=== PATIENT | female | born 1930 | race Caucasian/White ===

== ENCOUNTER 2018-02-20 13:07 | Emergency (ER) | payer OTHER ==
--- NOTE | 2018-02-20 14:34 | RAD REPORT ---
EXAM DESCRIPTION: RAD - Foot Right 3 View - 02/20/2018 2:20 pm CLINICAL HISTORY: Right foot pain status post injury FINDINGS: Mildly displaced fractures involve the second, third and fourth metatarsal necks. No dislo cation is seen. Bones are osteoporotic
--- NOTE | 2018-02-20 15:12 | ER ---
Nurse's Notes [facility] Name: Hailey Partida Age: 88 yrs Sex: Female : 1930 Arrival Date: 02/20/2018 Time: 13:09 Bed 20 Private MD: Diagnosis: Displaced fracture of second metatarsal bone, right foot;Displaced fracture of third metatarsal bone, right foot;Displaced fracture of fourth metatarsal bone, right foot;Fall due to bumping against object Presentation: 02/20 13:15 Presenting complaint: Patient states: I was walking in the yard and my right knee gave hb out, then my right foot twisted, now c/o right foot pain 10/10. Unable to bear weight. Transition of care: patient was not received from another setting of care. Onset of symptoms was February 20, 2018 at 11:30. Initial Sepsis Screen: Does the patient meet any 2 criteria? No. Patient's initial sepsis screen is negative. Does the patient have a suspected source of infection? No. Patient's initial sepsis screen is negative. Care prior to arrival: None. 13:15 Method Of Arrival: Wheelchair hb 13:15 Acuity: RUPA 4 hb Triage Assessment: 13:30 Injury Description: Pt states "My knee gave out and I fell onto my bottom". aa5 Historical: - Allergies: 13:17 Clindamycin; hb 13:17 DynaCirc; hb 13:17 mycin drugs; hb 13:17 whitehead alpha-combinations; hb 13:17 SHELLFISH; hb 13:17 sulfamet/trimet; hb 13:17 TETRACYCLINES; hb 13:17 Ziac; hb - Home Meds: 13:17 alphagan P Opht for Eye Disorder [Active]; Diovan HCT Oral for Hypertension [Active]; hb guanfacine 1 mg Oral tab 1 tab once daily for Hypertension [Active]; Magnesium Oxide Oral for Hypomagnesemia [Active]; Metformin Oral for Type 2 Diabetes Mellitus [Active]; aspirin 81 mg Oral chew 1 tab once daily [Active]; Multiple Vitamins Oral tab [Active]; Vitamin B-12 Oral [Active]; - PMHx: 13:17 Arthritis; CAD; Diabetes - NIDDM; Glaucoma; Hypertension; macular degenerations; hb Thyroid problem; - PSHx: 13:17 Hysterectomy; hb - Immunization history:: Adult Immunizations up to date. - Social history:: Smoking status: Patient/guardian denies using tobacco. - Family history:: not pertinent. Screenin:30 Abuse screen: Denies threats or abuse. Nutritional screening: No deficits noted. aa5 Tuberculosis screening: No symptoms or risk factors identified. Fall Risk Fall in past 12 months (25 points). No secondary diagnosis (0 pts). No IV (0 pts). Ambulatory Aid- Crutches/Cane/Walker (15 pts). Mental Status- Oriented to own ability (0 pts). Total Kevin Fall Scale indicates Low Risk Score (25-44 pts). Fall prevention measures have been instituted. Side Rails Up X 2 Family Present and informed to notify staff if they need to leave bedside. Assessment: 13:30 General: Appears comfortable, Behavior is calm, cooperative. Pain: Complains of pain in aa5 dorsum of right foot Pain currently is 10 out of 10 on a pain scale. Quality of pain is described as aching, Pain began this morning at 1130 Aggravated by weight bearing. Neuro: Level of Consciousness is awake, alert, obeys commands, Oriented to person, place, time, situation. Cardiovascular: Heart tones S1 S2 present Pulses are 3+ in right posterior tibial artery and right dorsalis pedis artery Rhythm is regular. Respiratory: Airway is patent Respiratory effort is even, unlabored, Respiratory pattern is regular, symmetrical. GI: No signs and/or symptoms were reported involving the gastrointestinal system. : No signs and/or symptoms were reported regarding the genitourinary system. EENT: No signs and/or symptoms were reported regarding the EENT system. Derm: Skin is pink, warm \\T\\ dry. Musculoskeletal: Range of motion: intact in all extremities, Pt denies knee pain, denies ankle pain. Pt denies head injury. 14:30 Reassessment: Patient and/or family updated on plan of care and expected duration. Pain aa5 level reassessed. Patient is alert, oriented x 3, equal unlabored respirations, skin warm/dry/pink. 16:10 Reassessment: Patient is alert, oriented x 3, equal unlabored respirations, skin aa5 warm/dry/pink. Short walking boot applied to right foot . Vital Signs: 13:14 BP 151 / 101; Pulse 90; Resp 20; Temp 98; Pulse Ox 100% on R/A; Pain 10/10; hb 14:39 BP 158 / 66; Pulse 85; Resp 19; Pulse Ox 96% on R/A; mh5 16:05 BP 160 / 64; Pulse 85; Resp 16 S; Pulse Ox 98% on R/A; Pain 9/10; aa5 ED Course: 13:09 Patient arrived in ED. as 13:14 Arm band placed on left wrist. hb 13:16 Triage completed. hb 13:19 Junior Irwin MD is Attending Physician. [facility] 13:23 Aubrie Castanon, RN is Primary Nurse. aa5 13:30 Patient has correct armband on for positive identification. Bed in low position. Call aa5 light in reach. Side rails up X2. Adult w/ patient. 13:30 No provider procedures requiring assistance completed. aa5 14:13 X-ray completed. Portable x-ray completed in exam room. Patient tolerated procedure jb2 well. 14:14 XRAY Foot RIGHT 3 View In Process Unspecified. EDMS 15:09 Dario Carmona MD is Referral Physician. [facility] 16:15 Patient did not have IV access during this emergency room visit. aa5 Administered Medications: 15:40 Drug: [place] 5 mg-325 mg 1 tabs Route: PO; aa5 16:10 Follow up: Response: No adverse reaction aa5 Outcome: 15:12 Discharge ordered by . [facility] 16:15 Discharged to home via wheelchair, with family. aa5 16:15 Condition: stable 16:15 Discharge instructions given to patient, family, Instructed on discharge instructions, follow up and referral plans. medication usage, Demonstrated understanding of instructions, follow-up care, medications, Prescriptions given X 2. 16:29 Patient left the ED. aa5 Signatures: Dispatcher [employer] EDIA Junior Irwin MD MD cha Buechter, Jesse jb2 Noemí Pena Audri, RN RN aa5 Anabelle Ward RN RN hb Martinez, Maria [facility] Corrections: (The following items were deleted from the chart) 13:16 13:14 BP 151 / 101; Pulse 90bpm; Resp 20bpm; Pulse Ox 100% RA; Temp 98F; Pain 8/10; hb hb
--- NOTE | 2018-02-20 15:12 | EDPHYS ---
Physician Documentation [facility] Name: Hailey Partida Age: 88 yrs Sex: Female : 1930 Arrival Date: 02/20/2018 Time: 13:09 Bed 20 Private MD: ED Physician Junior Irwin HPI: 02/20 14:07 This 88 yrs old Female presents to ER via Wheelchair with complaints of Foot markel Injury. 14:07 The patient presents with a contusion, decreased range of motion, pain. The complaints markel affect the right foot, right foot. Context: resulted from the patient falling, a mis-step by the patient, Mechanism of Injury: Inversion. Onset: The symptoms/episode began/occurred this morning. Modifying factors: The symptoms are alleviated by elevation of extremity, ice packs, the symptoms are aggravated by weight bearing, movement, wearing shoes. Associated signs and symptoms: The patient has no apparent associated signs or symptoms. Severity of symptoms: At their worst the symptoms were moderate, in the emergency department the symptoms are unchanged. The patient has not experienced similar symptoms in the past. Historical: - Allergies: 13:17 Clindamycin; hb 13:17 DynaCirc; hb 13:17 mycin drugs; hb 13:17 whitehead alpha-combinations; hb 13:17 SHELLFISH; hb 13:17 sulfamet/trimet; hb 13:17 TETRACYCLINES; hb 13:17 Ziac; hb - Home Meds: 13:17 alphagan P Opht for Eye Disorder [Active]; Diovan HCT Oral for Hypertension [Active]; hb guanfacine 1 mg Oral tab 1 tab once daily for Hypertension [Active]; Magnesium Oxide Oral for Hypomagnesemia [Active]; Metformin Oral for Type 2 Diabetes Mellitus [Active]; aspirin 81 mg Oral chew 1 tab once daily [Active]; Multiple Vitamins Oral tab [Active]; Vitamin B-12 Oral [Active]; - PMHx: 13:17 Arthritis; CAD; Diabetes - NIDDM; Glaucoma; Hypertension; macular degenerations; hb Thyroid problem; - PSHx: 13:17 Hysterectomy; hb - Immunization history:: Adult Immunizations up to date. - Social history:: Smoking status: Patient/guardian denies using tobacco. - Family history:: not pertinent. ROS: 14:07 Constitutional: Negative for fever, chills, and weight loss, Eyes: Negative for injury, markel pain, redness, and discharge, ENT: Negative for injury, pain, and discharge, Neck: Negative for injury, pain, and swelling, Cardiovascular: Negative for chest pain, palpitations, and edema, Respiratory: Negative for shortness of breath, cough, wheezing, and pleuritic chest pain, Abdomen/GI: Negative for abdominal pain, nausea, vomiting, diarrhea, and constipation, Back: Negative for injury and pain, : Negative for injury, bleeding, discharge, and swelling, Skin: Negative for injury, rash, and discoloration, Neuro: Negative for headache, weakness, numbness, tingling, and seizure, Psych: Negative for depression, anxiety, suicide ideation, homicidal ideation, and hallucinations, Allergy/Immunology: Negative for hives, rash, and allergies, Endocrine: Negative for neck swelling, polydipsia, polyuria, polyphagia, and marked weight changes, Hematologic/Lymphatic: Negative for swollen nodes, abnormal bleeding, and unusual bruising. 14:07 : Positive for 14:07 MS/extremity: Positive for injury or acute deformity, decreased range of motion, pain, of the right foot. Exam: 14:07 Constitutional: This is a well developed, well nourished patient who is awake, alert, markel and in no acute distress. Head/Face: Normocephalic, atraumatic. Eyes: Pupils equal round and reactive to light, extra-ocular motions intact. Lids and lashes normal. Conjunctiva and sclera are non-icteric and not injected. Cornea within normal limits. Periorbital areas with no swelling, redness, or edema. ENT: Nares patent. No nasal discharge, no septal abnormalities noted. Tympanic membranes are normal and external auditory canals are clear. Oropharynx with no redness, swelling, or masses, exudates, or evidence of obstruction, uvula midline. Mucous membranes moist. Neck: Trachea midline, no thyromegaly or masses palpated, and no cervical lymphadenopathy. Supple, full range of motion without nuchal rigidity, or vertebral point tenderness. No Meningismus. Chest/axilla: Normal chest wall appearance and motion. Nontender with no deformity. No lesions are appreciated. Cardiovascular: Regular rate and rhythm with a normal S1 and S2. No gallops, murmurs, or rubs. Normal PMI, no JVD. No pulse deficits. Respiratory: Lungs have equal breath sounds bilaterally, clear to auscultation and percussion. No rales, rhonchi or wheezes noted. No increased work of breathing, no retractions or nasal flaring. Abdomen/GI: Soft, non-tender, with normal bowel sounds. No distension or tympany. No guarding or rebound. No evidence of tenderness throughout. Back: No spinal tenderness. No costovertebral tenderness. Full range of motion. Female : Normal external genitalia. Skin: Warm, dry with normal turgor. Normal color with no rashes, no lesions, and no evidence of cellulitis. Neuro: Awake and alert, GCS 15, oriented to person, place, time, and situation. Cranial nerves II-XII grossly intact. Motor strength 5/5 in all extremities. Sensory grossly intact. Cerebellar exam normal. Normal gait. Psych: Awake, alert, with orientation to person, place and time. Behavior, mood, and affect are within normal limits. 14:07 Musculoskeletal/extremity: Extremities: grossly normal except: pain, ROM: limited active range of motion, limited passive range of motion, Circulation is intact in all extremities. Sensation intact. Compartment Syndrome exam of affected extremity: is normal. Weight bearing: can bear weight with assistance only, DVT Exam: no swelling, negative Homans' sign noted on exam, no appreciated bluish discoloration, no erythema, no increased warmth, pain, tenderness. Vital Signs: 13:14 BP 151 / 101; Pulse 90; Resp 20; Temp 98; Pulse Ox 100% on R/A; Pain 10/10; hb 14:39 BP 158 / 66; Pulse 85; Resp 19; Pulse Ox 96% on R/A; mh5 16:05 BP 160 / 64; Pulse 85; Resp 16 S; Pulse Ox 98% on R/A; Pain 9/10; aa5 MDM: 13:19 Patient medically screened. [facility] 14:11 Data reviewed: vital signs, nurses notes, radiologic studies, plain films. [facility] 02/20 13:42 Order name: XRAY Foot RIGHT 3 View; Complete Time: 15:06 02/20 14:07 Order name: Ice pack; Complete Time: 14:10 [facility] 02/20 15:14 Order name: Misc. Order: short walking boot; Complete Time: 16:26 [facility] Administered Medications: 15:40 Drug: [place] 5 mg-325 mg 1 tabs Route: PO; aa5 16:10 Follow up: Response: No adverse reaction aa5 Disposition: 02/20/18 15:12 Discharged to Home. Impression: Displaced fracture of second metatarsal bone, right foot, Displaced fracture of third metatarsal bone, right foot, Displaced fracture of fourth metatarsal bone, right foot, Fall due to bumping against object. - Condition is Stable. - Discharge Instructions: Metatarsal Fracture, Undisplaced. - Prescriptions for Motrin IB 200 mg Oral Tablet - take 2 tablet by ORAL route every 6 hours As needed as needed with food; 20 tablet. Tylenol- Codeine #3 300-30 mg Oral Tablet - take 2 tablets by ORAL route every 6 hours As needed; 24 tablet. - Medication Reconciliation Form, Thank You Letter, Antibiotic Education, Prescription Opioid Use form. - Follow up: Private Physician; When: 2 - 3 days; Reason: Recheck today's complaints, Continuance of care, Re-evaluation by your physician. Follow up: Dario Carmona; When: 2 - 3 days; Reason: Recheck today's complaints, Continuance of care, Re-evaluation by your physician. - Problem is new. - Symptoms have improved. Signatures: Dispatcher [employer] EDMS Junior Irwin MD MD cha Calderon, Audri, RN RN aa5 Anabelle Ward RN RN Corrections: (The following items were deleted from the chart) 15:08 14:07 Ortho shoe ordered. markel [facility]
[2018-02-20] MEDS ORDERED: HYDROCODONE/APAP 5/325 MG TAB ONE (15:47)
[2018-02-20 16:34] VITALS: TEMP 98
[2018-02-20 16:36] VITALS: BP 160/64; O2SAT 98
== END 2018-02-20 16:29 | disposition home or self-care (01) ==
LOC: ER 13:07
DX: S92.321A Displaced fracture of second metatarsal bone, right foot, initial encounter for closed fracture (principal); S92.331A Displaced fracture of third metatarsal bone, right foot, initial encounter for closed fracture; S92.341A Displaced fracture of fourth metatarsal bone, right foot, initial encounter for closed fracture; W01.0XXA Fall on same level from slipping, tripping and stumbling without subsequent striking against object, initial encounter; Y93.9 Activity, unspecified; Y92.9 Unspecified place or not applicable; Z88.3 Allergy status to other anti-infective agents; Z88.2 Allergy status to sulfonamides; Z91.013 Allergy to seafood; Z88.8 Allergy status to other drugs, medicaments and biological substances; E11.9 Type 2 diabetes mellitus without complications; I10 Essential (primary) hypertension
CPT/HCPCS: 99283

== ENCOUNTER 2018-02-21 21:38 | Emergency (ER) | payer OTHER ==
--- NOTE | 2018-02-21 22:41 | RAD REPORT ---
EXAM DESCRIPTION: RAD - Neck Soft Tissue - 02/21/2018 10:33 pm CLINICAL HISTORY: Dysphagia COMPARISON: None. FINDINGS: Prevertebral soft tissues are normal. Epiglottis and aryepiglottic folds are normal. Air c olumn is patent. No foreign body is seen. IMPRESSION: Negative study.
--- NOTE | 2018-02-21 23:28 | ER ---
Nurse's Notes [facility] Name: Hailey Partida Age: 88 yrs Sex: Female : 1930 Arrival Date: 02/21/2018 Time: 21:44 Bed 18 Private MD: Diagnosis: Person with feared health complaint in whom no diagnosis is made Presentation: 02/21 21:46 Presenting complaint: Child states: "She thinks she has something stuck in her lk1 throat.". Transition of care: patient was not received from another setting of care. Onset of symptoms was February 21, 2018 at 19:00. Initial Sepsis Screen: Does the patient meet any 2 criteria? No. Patient's initial sepsis screen is negative. Does the patient have a suspected source of infection? No. Patient's initial sepsis screen is negative. Care prior to arrival: None. 21:46 Method Of Arrival: Wheelchair lk1 21:46 Acuity: RUPA 3 lk1 Triage Assessment: 21:47 General: Appears in no apparent distress. Behavior is calm, cooperative, appropriate lk1 for age. Pain: Denies pain. GI: Reports something stuck in throat, coughing a lot and it won't come up. 21:50 Respiratory: Respiratory effort is even, unlabored, Respiratory pattern is regular, lk1 symmetrical. Historical: - Allergies: 21:47 Clindamycin; lk1 21:47 DynaCirc; lk1 21:47 mycin drugs; lk1 21:47 whitehead alpha-combinations; lk1 21:47 SHELLFISH; lk1 21:47 sulfamet/trimet; lk1 21:47 TETRACYCLINES; lk1 21:47 Ziac; lk1 - PMHx: 21:47 Arthritis; CAD; Diabetes - NIDDM; Glaucoma; Hypertension; macular degenerations; lk1 Thyroid problem; - PSHx: 21:47 Hysterectomy; stomach procedure; lk1 - Immunization history:: Adult Immunizations up to date. - Social history:: Smoking status: Patient/guardian denies using tobacco. Screenin:03 Abuse screen: Denies threats or abuse. Denies injuries from another. Nutritional ao screening: No deficits noted. Tuberculosis screening: No symptoms or risk factors identified. Fall Risk Fall in past 12 months (25 points). Assessment: 23:02 General: Appears in no apparent distress. comfortable, Behavior is calm, cooperative, ao appropriate for age. Pain: Denies pain. Neuro: Level of Consciousness is awake, alert, obeys commands, Oriented to person, place, time, situation, Appropriate for age Moves all extremities. Speech is normal, Facial symmetry appears normal, Pupils are PERRLA. Cardiovascular: Patient's skin is warm and dry. Respiratory: Airway is patent Respiratory effort is even, unlabored, Respiratory pattern is regular, symmetrical. GI: Abdomen is non-distended. : No signs and/or symptoms were reported regarding the genitourinary system. EENT: No signs and/or symptoms were reported regarding the EENT system. Derm: No signs and/or symptoms reported regarding the dermatologic system. Musculoskeletal: No signs and/or symptoms reported regarding the musculoskeletal system. Vital Signs: 21:48 BP 135 / 65; Pulse 73; Resp 15; Temp 97.8(TE); Pulse Ox 97% on R/A; Weight 58.51 kg lk1 (R); Height 5 ft. 5 in. (165.10 cm) (R); Pain 0/10; 21:48 Body Mass Index 21.47 (58.51 kg, 165.10 cm) lk1 ED Course: 21:44 Patient arrived in ED. al2 21:46 Triage completed. lk1 21:50 Arm band placed on right wrist. lk1 22:28 Rose Luna F[facility]-C [facility]. kb 22:28 Yohan Harris MD is Attending Physician. kb 22:31 Patient moved to radiology via wheelchair. kc2 22:31 X-ray completed. Patient tolerated procedure well. kc2 22:31 Patient moved back from radiology. kc2 22:32 Neck Soft Tissue XRAY In Process Unspecified. EDMS 22:44 Jayjay Lawrence, JACK is Primary Nurse. ao 23:03 Patient has correct armband on for positive identification. Pulse ox on. NIBP on. ao 23:03 No provider procedures requiring assistance completed. ao 23:53 Patient did not have IV access during this emergency room visit. ao Administered Medications: No medications were administered Outcome: 23:28 Discharge ordered by . kb 23:53 Discharged to home ambulatory. ao 23:53 Condition: stable 23:53 Discharge instructions given to patient, Instructed on discharge instructions, follow up and referral plans. Demonstrated understanding of instructions, follow-up care, medications. 23:53 Patient left the ED. ao Signatures: Dispatcher [employer] EDRose Gibson FNP-C FNP-Ckb Kluge, Leah, RN RN lk1 Jayjay Lawrence RN RN ao Carr, Kelsie kc2 Gretta Chin
--- NOTE | 2018-02-21 23:28 | EDPHYS ---
Physician Documentation [facility] Name: Hailey Partida Age: 88 yrs Sex: Female : 1930 Arrival Date: 02/21/2018 Time: 21:44 Bed 18 Private MD: ED Physician Yohan Harris HPI: 02/21 22:59 This 88 yrs old Female presents to ER via Wheelchair with complaints of kb Foreign Body In Throat. 22:59 The patient or guardian reports the patient has a suspected foreign body, of the kb throat. The reported likely foreign body is unknown. Onset: The symptoms/episode began/occurred 4 hour(s) ago. Current symptoms: none. Treatment Prior to Arrival: none. The patient has not experienced similar symptoms in the past. The patient has not recently seen a physician. Pt states she ate dinner, then was drinking water and started coughing. States she had meat stuck several years ago and started thinking about that so she got worried that there was something stuck again. States "I'm fine now. My throat feels fine.". Historical: - Allergies: 21:47 Clindamycin; lk1 21:47 DynaCirc; lk1 21:47 mycin drugs; lk1 21:47 whitehead alpha-combinations; lk1 21:47 SHELLFISH; lk1 21:47 sulfamet/trimet; lk1 21:47 TETRACYCLINES; lk1 21:47 Ziac; lk1 - PMHx: 21:47 Arthritis; CAD; Diabetes - NIDDM; Glaucoma; Hypertension; macular degenerations; lk1 Thyroid problem; - PSHx: 21:47 Hysterectomy; stomach procedure; lk1 - Immunization history:: Adult Immunizations up to date. - Social history:: Smoking status: Patient/guardian denies using tobacco. ROS: 22:58 Constitutional: Negative for fever, chills, and weight loss, ENT: Negative for injury, kb pain, and discharge, Neck: Negative for injury, pain, and swelling, Cardiovascular: Negative for chest pain, palpitations, and edema, Respiratory: Negative for shortness of breath, cough, wheezing, and pleuritic chest pain, Abdomen/GI: Negative for abdominal pain, nausea, vomiting, diarrhea, and constipation, MS/Extremity: Negative for injury and deformity, Skin: Negative for injury, rash, and discoloration, Neuro: Negative for headache, weakness, numbness, tingling, and seizure. Exam: 22:58 Constitutional: This is a well developed, well nourished patient who is awake, alert, kb and in no acute distress. Head/Face: Normocephalic, atraumatic. ENT: Nares patent. No nasal discharge, no septal abnormalities noted. Tympanic membranes are normal and external auditory canals are clear. Oropharynx with no redness, swelling, or masses, exudates, or evidence of obstruction, uvula midline. Mucous membranes moist. Neck: Trachea midline, no thyromegaly or masses palpated, and no cervical lymphadenopathy. Supple, full range of motion without nuchal rigidity, or vertebral point tenderness. No Meningismus. Chest/axilla: Normal chest wall appearance and motion. Nontender with no deformity. No lesions are appreciated. Cardiovascular: Regular rate and rhythm with a normal S1 and S2. No gallops, murmurs, or rubs. Normal PMI, no JVD. No pulse deficits. Respiratory: Lungs have equal breath sounds bilaterally, clear to auscultation and percussion. No rales, rhonchi or wheezes noted. No increased work of breathing, no retractions or nasal flaring. Abdomen/GI: Soft, non-tender, with normal bowel sounds. No distension or tympany. No guarding or rebound. No evidence of tenderness throughout. Skin: Warm, dry with normal turgor. Normal color with no rashes, no lesions, and no evidence of cellulitis. MS/ Extremity: Pulses equal, no cyanosis. Neurovascular intact. Full, normal range of motion. Neuro: Awake and alert, GCS 15, oriented to person, place, time, and situation. Cranial nerves II-XII grossly intact. Motor strength 5/5 in all extremities. Sensory grossly intact. Cerebellar exam normal. Normal gait. Vital Signs: 21:48 BP 135 / 65; Pulse 73; Resp 15; Temp 97.8(TE); Pulse Ox 97% on R/A; Weight 58.51 kg lk1 (R); Height 5 ft. 5 in. (165.10 cm) (R); Pain 0/10; 21:48 Body Mass Index 21.47 (58.51 kg, 165.10 cm) lk1 MDM: 22:28 Patient medically screened. kb 22:58 Data reviewed: vital signs, nurses notes. Data interpreted: Pulse oximetry: on room air kb is 97 %. Interpretation: normal. 23:27 Counseling: I had a detailed discussion with the patient and/or guardian regarding: the kb historical points, exam findings, and any diagnostic results supporting the discharge/admit diagnosis, radiology results, the need for outpatient follow up, a family practitioner, to return to the emergency department if symptoms worsen or persist or if there are any questions or concerns that arise at home. ED course: Pt tolerating PO intake. . 02/21 22:16 Order name: Neck Soft Tissue XRAY; Complete Time: 22:42 kb 02/21 22:53 Order name: PO challenge; Complete Time: 23:02 kb Administered Medications: No medications were administered Disposition: 02/22 06:45 Co-signature as Attending Physician, Yohan Harris MD Available for consultation at ps1 all times. . Disposition: 02/21/18 23:28 Discharged to Home. Impression: Person with feared health complaint in whom no diagnosis is made. - Condition is Stable. - Medication Reconciliation Form, Thank You Letter, Antibiotic Education, Prescription Opioid Use form. - Follow up: Emergency Department; When: As needed; Reason: Worsening of condition. Follow up: Private Physician; When: 2 - 3 days; Reason: Recheck today's complaints, Continuance of care, Re-evaluation by your physician. Signatures: Dispatcher [employer] EDCT Rose Luna, HERMINIO QUEEN-Carla Marquez RN RN lk1 Jayjay Lawrence RN Yohan Mendoza MD MD ps1 Corrections: (The following items were deleted from the chart) 02/21 22:53 22:42 EKG - Nurse/Tech ordered. kb kb
[2018-02-21 23:57] VITALS: BP 135/65; TEMP 97.8; O2SAT 97
== END 2018-02-21 23:53 | disposition home or self-care (01) ==
LOC: ER 21:38
DX: Z03.89 Encounter for observation for other suspected diseases and conditions ruled out (principal); I25.10 Atherosclerotic heart disease of native coronary artery without angina pectoris; E11.9 Type 2 diabetes mellitus without complications; I10 Essential (primary) hypertension
CPT/HCPCS: 70360; 99283

== ENCOUNTER 2018-04-21 19:23 | Inpatient (IN) | payer OTHER ==
[2018-04-21] MEDS ORDERED: ONDANSETRON 4 MG/2 ML VIAL ONE ×2 (19:59→20:38)
[2018-04-21] MEDS ORDERED: PANTOPRAZOLE 40 MG INJ ONE (19:59)
[2018-04-21] MEDS ORDERED: NA CHLORIDE 0.9% 500 ML ONE (19:59)
[2018-04-21 20:34] LABS: Absolute Lymphocytes (CBC) 1.6 K/uL (0.7-4.9); Absolute Monocytes 0.6 K/uL (0.1-1.3); Absolute Neutrophil 8.4 K/uL (1.8-8.0); Basophils % 0.6 % (0-1.3); Eosinophils % 3.6 % (0-4.4); Hematocrit 44.3 % (36.0-45.0); Lymphocytes % 14.6 % (15.3-44.8); MCH 28.1 pg (27.0-35.0); MCV 84.6 fL (80-100); MPV 8.6 fL (7.6-11.3); Monocytes % 5.4 % (3.3-12.3); RBC Red Blood Cell Count 5.23 M/uL (3.86-4.86)
[2018-04-21] MEDS ORDERED: MORPHINE 4 MG/ML SYR ONE (20:38)
[2018-04-21] MEDS ORDERED: FENTANYL CITR 100 MCG/2 ML ONE ×2 (20:43→21:47)
[2018-04-21 20:52] LABS: ALT/SGPT 19 U/L (12-78); AST/SGOT 17 U/L (15-37); Alkaline Phosphatase 145 U/L (45-117); Amylase Level 76 U/L (25-115); BUN Blood Urea Nitrogen 17 mg/dL (7-18); Bicarbonate 25 mmol/L (21-32); Bilirubin Direct < 0.1 mg/dL (0-0.2); Bilirubin Total 0.4 mg/dL (0.2-1.0); Glucose Level 162 mg/dL (74-106); Lipase 140 U/L (73-393); Magnesium 2.3 mg/dL (1.8-2.4); Protein, Total 8.2 g/dL (6.4-8.2); Sodium Level 141 mmol/L (136-145)
[2018-04-21] MEDS ORDERED: HYDROMORPHONE HCL 1 MG/ML INJ ONE (22:29)
--- NOTE | 2018-04-21 23:44 | ER ---
Nurse's Notes [facility] Name: Hailey Partida Age: 88 yrs Sex: Female : 1930 Arrival Date: 04/21/2018 Time: 19:24 Bed 25 Private MD: NOEMI ROJO Diagnosis: Small Bowel Obstruction Presentation: 04/21 19:39 Presenting complaint: Patient states: Patient states she started having lower abdominal kr2 pain at around 3pm today. One hour after eating a salad today. She had 1 episode of diarrhea. States because of a surgery she had years ago she is unable to vomit but she feels nauseated. Transition of care: patient was not received from another setting of care. Onset of symptoms was April 21, 2018 at 15:00. Risk Assessment: Do you want to hurt yourself or someone else? Patient reports no desire to harm self or others. Initial Sepsis Screen: Does the patient meet any 2 criteria? No. Patient's initial sepsis screen is negative. Does the patient have a suspected source of infection? No. Patient's initial sepsis screen is negative. Care prior to arrival: None. 19:39 Method Of Arrival: Wheelchair kr2 19:39 Acuity: RUPA 3 kr2 Triage Assessment: 19:41 General: Appears in no apparent distress. uncomfortable, well groomed, well developed, kr2 well nourished, Behavior is cooperative, anxious, restless. Pain: Complains of pain in left and right lower quadrants Pain currently is 10 out of 10 on a pain scale. Quality of pain is described as crampy, sharp, shooting, Is continuous, Alleviated by nothing. Aggravated by eating. GI: Abdomen is round non-distended, Reports diarrhea, nausea. Historical: - Allergies: 19:45 Clindamycin; kr2 19:45 DynaCirc; kr2 19:45 mycin drugs; kr2 19:45 whitehead alpha-combinations; kr2 19:45 SHELLFISH; kr2 19:45 sulfamet/trimet; kr2 19:45 Ziac; kr2 19:45 TETRACYCLINES; kr2 - PMHx: 19:45 Arthritis; CAD; Diabetes - NIDDM; Glaucoma; Hypertension; Thyroid problem; macular kr2 degenerations; - PSHx: 19:45 Hernia repair; Hysterectomy; kr2 - Immunization history:: Adult Immunizations unknown. - Social history:: Smoking status: Patient/guardian denies using tobacco. - Ebola Screening: : No symptoms or risks identified at this time. Screenin:41 Abuse screen: Denies threats or abuse. Denies injuries from another. Nutritional kr2 screening: No deficits noted. Tuberculosis screening: No symptoms or risk factors identified. Fall Risk Gait- Weak (10 pts.). Assessment: 20:05 General: Appears uncomfortable, ill, Behavior is cooperative, appropriate for age, mb3 anxious. Pain: Complains of pain in abdomen. Neuro: No deficits noted. Level of Consciousness is awake, alert, obeys commands, Oriented to person, place, time, situation, Appropriate for age. Cardiovascular: No deficits noted. Denies chest pain, Heart tones present Capillary refill < 3 seconds Patient's skin is warm and dry. Respiratory: No deficits noted. Airway is patent Respiratory effort is even, unlabored, Respiratory pattern is regular, symmetrical, Breath sounds are clear bilaterally. GI: Abdomen is flat, Bowel sounds present X 4 quads. hyperactive in right upper quadrant, left upper quadrant, right lower quadrant and left lower quadrant Abdomen is tender to palpation X 4 quads. : No signs and/or symptoms were reported regarding the genitourinary system. Derm: No signs and/or symptoms reported regarding the dermatologic system. Musculoskeletal: No signs and/or symptoms reported regarding the musculoskeletal system. 21:55 Reassessment: No changes from previously documented assessment. Patient and/or family mb3 updated on plan of care and expected duration. Pain level reassessed. Patient is alert, oriented x 3, equal unlabored respirations, skin warm/dry/pink. 23:47 Reassessment: Patient and/or family updated on plan of care and expected duration. Pain mb3 level reassessed. Patient is alert, oriented x 3, equal unlabored respirations, skin warm/dry/pink. Patient states feeling better. Patient states symptoms have improved. Vital Signs: 19:42 BP 189 / 118; Pulse 91; Resp 18; Temp 97.9; Pulse Ox 97% on R/A; Weight 58.97 kg; kr2 Height 5 ft. 5 in. (165.10 cm); Pain 10/10; 21:49 BP 201 / 96; Pulse 86; Resp 22; Pulse Ox 98% on R/A; Pain 10/10; mb3 22:29 BP 216 / 87; Pulse 80; Resp 22; Pulse Ox 96% on R/A; mb3 23:15 BP 150 / 50; Pulse 85; Resp 18; Pulse Ox 99% on 2 lpm NC; Pain 2/10; mb3 04/22 01:41 BP 150 / 86; Pulse 87; Resp 20; Pulse Ox 92% on R/A; mb3 04/21 19:42 Body Mass Index 21.63 (58.97 kg, 165.10 cm) kr2 ED Course: 04/21 19:24 Patient arrived in ED. es 19:24 NOEMI ROJO is Private Physician. es 19:39 Kenyetta Felix, RN is Primary Nurse. kr2 19:40 Triage completed. kr2 19:41 Arm band placed on. kr2 19:42 Junior Morrissey PA is PHCP. cp 19:42 Damian Ann MD is Attending Physician. cp 19:45 Patient has correct armband on for positive identification. Bed in low position. Call kr2 light in reach. Side rails up X 1. Pulse ox on. NIBP on. Door closed. Warm blanket given. Head of bed elevated. 20:00 Inserted saline lock: 20 gauge in left antecubital area, using aseptic technique. Blood mb3 collected. 20:10 Jorge Mcdonough, RN is Primary Nurse. mb3 21:[address] via stretcher. sj 22:02 CT completed. Patient tolerated procedure well. Patient moved back from CT. nj 22:05 Abdomen In Process Unspecified. EDMS 23:42 Flower Osborn MD is Hospitalizing Provider. cp 04/22 01:46 No provider procedures requiring assistance completed. mb3 01:51 Patient admitted, IV remains in place. mb3 Administered Medications: 04/21 20:02 Drug: ProTONIX 40 mg Route: IVP; Site: left antecubital; kr2 20:02 Drug: Zofran 4 mg Route: IVP; Site: left antecubital; kr2 20:02 Drug: NS 0.9% 250 ml Route: IV; Rate: bolus; Site: left antecubital; kr2 20:21 Drug: NS 0.9% 1000 ml Route: IV; Rate: 75 ml/hr; Site: left antecubital; mb3 20:50 Drug: fentaNYL (PF) 25 mcg Route: IVP; Site: left antecubital; mb3 20:50 Drug: Zofran 4 mg Route: IVP; Site: left antecubital; mb3 21:48 Drug: fentaNYL (PF) 25 mcg Route: IVP; Site: left antecubital; mb3 22:24 CANCELLED (Physician Discretion): Dilaudid 0.5 mg IVP once cp 22:29 Drug: Dilaudid 1 mg Route: IVP; Site: left antecubital; mb3 04/22 01:18 Drug: Nitroglycerin 0.4 mg Route: Sublingual; mb3 Outcome: 04/21 23:43 Decision to Hospitalize by Provider. 04/22 01:48 Admitted to Med/surg accompanied by nurse, family with patient, via stretcher, room mb3 203, with chart, Report called to Christie Mayorga RN Condition: stable 02:10 Patient left the ED. mb3 Signatures: Dispatcher [employer] EDClemencia Cristobal Susan sj Page, Corey, PA PA Ladarius Segal Karey, RN RN kr2 Jorge Mcdonough RN RN mb3
--- NOTE | 2018-04-21 23:44 | EDPHYS ---
Physician Documentation [facility] Name: Hailey Partida Age: 88 yrs Sex: Female : 1930 Arrival Date: 04/21/2018 Time: 19:24 Bed 25 Private MD: NOEMI ROJO ED Physician Damian Ann HPI: 04/21 20:00 This 88 yrs old Female presents to ER via Wheelchair with complaints of cp Abdominal Pain. 20:00 The patient presents with abdominal pain that is diffuse. Onset: The symptoms/episode cp began/occurred today. The symptoms do not radiate. Associated signs and symptoms: Pertinent positives: nausea and vomiting, Pertinent negatives: constipation, diarrhea, dysuria, fever, vomiting blood. The symptoms are described as constant. 20:00 Severity of pain: in the emergency department the pain is actually worse moderately. cp Historical: - Allergies: 19:45 Clindamycin; kr2 19:45 DynaCirc; kr2 19:45 mycin drugs; kr2 19:45 whitehead alpha-combinations; kr2 19:45 SHELLFISH; kr2 19:45 sulfamet/trimet; kr2 19:45 Ziac; kr2 19:45 TETRACYCLINES; kr2 - PMHx: 19:45 Arthritis; CAD; Diabetes - NIDDM; Glaucoma; Hypertension; Thyroid problem; macular kr2 degenerations; - PSHx: 19:45 Hernia repair; Hysterectomy; kr2 - Immunization history:: Adult Immunizations unknown. - Social history:: Smoking status: Patient/guardian denies using tobacco. - Ebola Screening: : No symptoms or risks identified at this time. ROS: 20:08 Constitutional: Negative for body aches, chills, fever. cp 20:08 Eyes: Negative for injury, pain, redness, and discharge. cp 20:08 ENT: Negative for drainage from ear(s), ear pain, sore throat, difficulty swallowing, difficulty handling secretions. 20:08 Cardiovascular: Negative for chest pain, edema, palpitations. 20:08 Respiratory: Negative for cough, shortness of breath, wheezing. 20:08 Abdomen/GI: Positive for abdominal pain, nausea and vomiting, abdominal distension, Negative for diarrhea, constipation, dysphagia, black/tarry stool, rectal bleeding. 20:08 Back: Negative for pain at rest, pain with movement, radiated pain. 20:08 Skin: Negative for cellulitis, rash. 20:08 Neuro: Negative for altered mental status, headache. 20:08 All other systems are negative. Exam: 20:12 Head/Face: Normocephalic, atraumatic. cp 20:12 Constitutional: The patient appears alert, awake, non-diaphoretic, non-toxic, well developed, well nourished, in obvious distress, mildly distressed, uncomfortable. 20:12 Eyes: Periorbital structures: appear normal, Conjunctiva: normal, no exudate, no injection, Sclera: no appreciated abnormality, Lids and lashes: appear normal, bilaterally. 20:12 ENT: External ear(s): are unremarkable, Nose: is normal, Mouth: Lips: dry, Oral mucosa: moist, Posterior pharynx: Airway: no evidence of obstruction, patent. 20:12 Neck: ROM/movement: is normal, is supple, without pain, no range of motions limitations, no meningismus, no nuchal rigidity. 20:12 Chest/axilla: Inspection: normal, Palpation: is normal, no crepitus, no tenderness. 20:12 Cardiovascular: Rate: normal, Rhythm: regular, Edema: is not appreciated, JVD: is not appreciated. 20:12 Respiratory: the patient does not display signs of respiratory distress, Respirations: normal, no use of accessory muscles, no retractions, no splinting, no tachypnea, labored breathing, is not present, Breath sounds: are clear throughout, no decreased breath sounds, no stridor, no wheezing. 20:12 Abdomen/GI: Inspection: distension, that is moderate, Bowel sounds: active, all quadrants, Palpation: soft, in all quadrants, moderate abdominal tenderness, in all quadrants, rebound tenderness, is not appreciated, involuntary guarding, is not appreciated. 20:12 Back: pain, is absent, ROM is normal. 20:12 Skin: cellulitis, is not appreciated, no rash present. cp 20:12 Neuro: Orientation: to person, place \T\ time. Mentation: lucid, able to follow commands, Cerebellar function: is grossly normal, Motor: moves all fours, strength is normal, Sensation: no obvious gross deficits. Vital Signs: 19:42 BP 189 / 118; Pulse 91; Resp 18; Temp 97.9; Pulse Ox 97% on R/A; Weight 58.97 kg; kr2 Height 5 ft. 5 in. (165.10 cm); Pain 10/10; 21:49 BP 201 / 96; Pulse 86; Resp 22; Pulse Ox 98% on R/A; Pain 10/10; mb3 22:29 BP 216 / 87; Pulse 80; Resp 22; Pulse Ox 96% on R/A; mb3 23:15 BP 150 / 50; Pulse 85; Resp 18; Pulse Ox 99% on 2 lpm NC; Pain 2/10; mb3 04/22 01:41 BP 150 / 86; Pulse 87; Resp 20; Pulse Ox 92% on R/A; mb3 04/21 19:42 Body Mass Index 21.63 (58.97 kg, 165.10 cm) kr2 MDM: 04/21 19:42 Patient medically screened. 23:05 Data reviewed: vital signs, nurses notes, lab test result(s), radiologic studies, CT cp scan, and as a result, I will admit patient. 23:05 Differential diagnosis: bowel obstruction, gastritis, GI Bleed, pancreatitis, cp Pyelonephritis, Ureterolithiasis, urinary tract infection. Response to treatment: the patient's symptoms have mildly improved after treatment. 23:39 Physician consultation: Flower Osborn MD was called at 23:39, was contacted at 23:39, regarding admission, to the medical/surgical unit. patient's condition. 04/21 19:55 Order name: Amylase, Serum cp 04/21 19:55 Order name: Basic Metabolic Panel cp 04/21 19:55 Order name: CBC with Diff cp 04/21 19:55 Order name: Creatinine for Radiology; Complete Time: 21:44 cp 04/21 19:55 Order name: Hepatic Function; Complete Time: 21:44 cp 04/21 19:55 Order name: Lipase; Complete Time: 21:44 cp 04/21 19:55 Order name: Urine Microscopic Only cp 04/21 19:55 Order name: Magnesium; Complete Time: 21:44 cp 04/21 19:55 Order name: Amylase Level; Complete Time: 21:44 EDMS 04/21 19:55 Order name: Basic Metabolic Panel; Complete Time: 21:44 EDMS 04/21 21:44 Interpretation: Normal except: GLUC 162; GFR 68. cp 04/21 19:55 Order name: CBC with Automated Diff; Complete Time: 21:44 EDMS 04/21 21:58 Order name: Abdomen EDMS 04/21 19:55 Order name: IV Saline Lock; Complete Time: 20:03 cp 04/21 19:55 Order name: Labs collected and sent; Complete Time: 20:02 cp 04/21 19:55 Order name: Urine Dipstick-Ancillary (obtain specimen) 04/21 19:55 Order name: EKG; Complete Time: 19:55 cp 04/21 19:55 Order name: EKG - Nurse/Tech; Complete Time: 20:21 cp 04/21 23:08 Order name: NG Tube; Complete Time: 01:19 cp 04/21 23:43 Order name: Mcmahan; Complete Time: 01:19 cp Administered Medications: 20:02 Drug: ProTONIX 40 mg Route: IVP; Site: left antecubital; kr2 20:02 Drug: Zofran 4 mg Route: IVP; Site: left antecubital; kr2 20:02 Drug: NS 0.9% 250 ml Route: IV; Rate: bolus; Site: left antecubital; kr2 20:21 Drug: NS 0.9% 1000 ml Route: IV; Rate: 75 ml/hr; Site: left antecubital; mb3 20:50 Drug: fentaNYL (PF) 25 mcg Route: IVP; Site: left antecubital; mb3 20:50 Drug: Zofran 4 mg Route: IVP; Site: left antecubital; mb3 21:48 Drug: fentaNYL (PF) 25 mcg Route: IVP; Site: left antecubital; mb3 22:24 CANCELLED (Physician Discretion): Dilaudid 0.5 mg IVP once cp 22:29 Drug: Dilaudid 1 mg Route: IVP; Site: left antecubital; mb3 04/22 01:18 Drug: Nitroglycerin 0.4 mg Route: Sublingual; mb3 Disposition: 11:13 Co-signature as Attending Physician, Damian Ann MD I agree with the assessment and wa plan of care. Disposition: 04/21/18 23:43 Hospitalization ordered by Flower Osborn for Inpatient Admission. Preliminary diagnosis is Small Bowel Obstruction. - Bed requested for Telemetry/MedSurg (Inpatient). - Status is Inpatient Admission. mb3 - Condition is Stable. - Problem is new. - Symptoms have improved. UTI on Admission? No Signatures: Dispatcher [employer] EDFL Angela Sommers, RN RN Junior Mitchell PA PA cp Appiah, William, MD MD wa Reaves, Karey RN RN kr2 Jorge Mcdonough, RN RN mb3 Corrections: (The following items were deleted from the chart) 04/21 21:58 19:55 Abdomen Pelvis W Con+CT.RAD.BRZ ordered. EDFL EDMS 22:24 22:24 Dilaudid 0.5 mg IVP once ordered. [facility] 04/22 01:23 04/21 23:43 Hospitalization Ordered by Flower Osborn MD for Inpatient Admission. olivia Preliminary diagnosis is Small Bowel Obstruction. Bed requested for Telemetry/MedSurg (Inpatient). Status is Inpatient Admission. Condition is Stable. Problem is new. Symptoms have improved. UTI on Admission? No. 04/22 02:10 01:23 04/21/2018 23:43 Hospitalization Ordered by Flower Osborn MD for Inpatient mb3 Admission. Preliminary diagnosis is Small Bowel Obstruction. Bed requested for Telemetry/MedSurg (Inpatient). Status is Inpatient Admission. Condition is Stable. Problem is new. Symptoms have improved. UTI on Admission? No. olivia
[2018-04-22] MEDS ORDERED: NA CHLORIDE 0.9% 1,000 ML ONE (00:04)
[2018-04-22] MEDS ORDERED: NITROGLYCERIN 0.4 MG/TAB SL ONE (00:57)
--- NOTE | 2018-04-22 01:13 | P.HP ---
Certification for Inpatient Patient admitted to: Inpatient With expected LOS: >2 Midnights Practitioner: I am a practitioner with admitting privileges, knowledge of patient current condition, hospital course, and medical plan of care. Services: Services provided to patient in accordance with Admission requirements found in Title 42 Section 412.3 of the Code of Federal Regulations Patient History Date of Service: 04/22/18 Reason for admission: SBO History of Present Illness: Ms Partida is an 88 years old woman with history of CAD, HTN, DM II, with previous abdominal surgeries, came to ED complaining of abdominal pain. The pain started around 1500 this afternoon. It is diffuse, 8/10 of intensity, associated with nausea but not vomiting. The pain is constant, she has distended abdomen. She had 1 episode of diarrhea as well. Her symptoms started about 1 hour after ate a salad. She has never had similar abdominal pain in the past. Lab work remarkable for 11K, UA pending. She is afebrile. CT abd/pelvis shows multiple dilated small bowel loops with a transition point in the midline of pelvis, consistent with SBO. Allergies clindamycin Allergy (Severe, Verified 10/13/12 01:14) Itching Sulfa (Sulfonamide Antibiotics) [Sulfa(Sulfonamide Antibiotics)] Allergy (Severe , Verified 10/13/12 01:14) Nausea/Vomiting bisoprolol [From Ziac] Allergy (Unverified 06/18/16 04:17) Unknown bisoprolol fumarate [From Ziac] Allergy (Unverified 03/28/15 17:13) Unknown hydrochlorothiazide [From Ziac] Allergy (Unverified 03/28/15 17:13) Unknown isradipine [From DynaCirc] Allergy (Unverified 03/28/15 17:13) Unknown Tetracyclines Allergy (Unverified 03/28/15 17:13) Unknown unknown Allergy (Severe, Uncoded 10/13/12 01:08) Hives/Rash my Allergy (Uncoded 03/19/16 01:18) Unknown mycin d Allergy (Uncoded 06/18/16 04:17) Unknown whitehead alph Allergy (Uncoded 06/18/16 04:17) Unknown whitehead alph-combinatio Allergy (Uncoded 03/28/15 17:13) Unknown whitehead alpha Allergy (Uncoded 03/19/16 01:18) Unknown whitehead alpha-com Allergy (Uncoded 01/26/16 04:03) Unknown SH Allergy (Uncoded 06/18/16 04:17) Unknown SHELLFISH Allergy (Uncoded 03/28/15 17:13) Unknown sulfamet/Trimet Allergy (Uncoded 03/28/15 17:13) Unknown Home medications list reviewed: Yes - Past Medical/Surgical History -: DM II -: HTN -: CAD -: hernia repair -: hysterectomy - Family History Family History: Reviewed- Non-Contributory - Social History Alcohol use: No CD- Drugs: No Place of Residence: Home Review of Systems 10-point ROS is otherwise unremarkable Physical Examination - Physical Exam General: Alert, In no apparent distress HEENT: Atraumatic, PERRLA, Mucous membr. moist/pink, EOMI, Sclerae nonicteric Neck: Supple, 2+ carotid pulse no bruit, No LAD, Without JVD or thyroid abnormality Respiratory: Clear to auscultation bilaterally, Normal air movement Cardiovascular: Regular rate/rhythm, Systolic murmur (3/6 aortic area), Diastolic murmur (2/6 aortic area) Gastrointestinal: Hypoactive, Distended, Tenderness Musculoskeletal: No tenderness Integumentary: No rashes Neurological: Normal speech, Normal strength at 5/5 x4 extr, Normal tone, Normal affect Lymphatics: No axilla or inguinal lymphadenopathy - Studies Laboratory Data (last 24 hrs) 04/21/18 20:00: Creatinine 0.80 04/21/18 20:00: WBC 11.0 H, Hgb 14.7, Hct 44.3, Plt Count 291 04/21/18 20:00: Sodium 141, Potassium 4.0, BUN 17, Creatinine 0.80, Glucose 162 H, Magnesium 2.3, Total Bilirubin 0.4, AST 17, ALT 19, Alkaline Phosphatase 145 H, Amylase 76, Lipase 140 Assessment and Plan - Problems (Diagnosis) (1) SBO (small bowel obstruction) Current Visit: Yes Status: Acute (2) CAD (coronary artery disease) Current Visit: Yes Status: Acute Qualifiers: Coronary Disease-Associated Artery/Lesion type: [place] artery [place] vs. transplanted heart: [place] heart Associated angina: without angina Qualified Code(s): I25.10 - Atherosclerotic heart disease of [place] coronary artery without angina pectoris (3) Diabetes mellitus Current Visit: Yes Status: Acute Qualifiers: Diabetes mellitus type: type 2 Diabetes mellitus terminal computer operator insulin use: without terminal computer operator use Diabetes mellitus complication status: with unspecified complications Qualified Code(s): E11.8 - Type 2 diabetes mellitus with unspecified complications (4) HTN (hypertension) Current Visit: Yes Status: Acute Qualifiers: Hypertension type: essential hypertension Qualified Code(s): I10 - Essential (primary) hypertension - Plan The patient will be admitted to the hospital due to SBO. Will order NGT, bowel rest, IV fluids, symptomatic medication for nausea and pain. Consult Dr Pena for evaluation and recommendations. Discharge Plan: Home - Advance Directives Does patient have a Living Will: Yes Does patient have a Durable POA for Healthcare: Yes - Code Status/Comfort Care Code Status Assessed: Yes Code Status: Full Code
[2018-04-22] MEDS ORDERED: KETOROLAC 30 MG/ML INJ IV PRN (02:45)
[2018-04-22] MEDS: NA CHLORIDE 0.9% 1,000 ML IV SCH ×3 (02:45→23:51)
[2018-04-22] MEDS ORDERED: ONDANSETRON 4 MG/2 ML VIAL IV PRN (02:45)
[2018-04-22 05:41] LABS: Potassium 4.4 mmol/L (3.5-5.1)
[2018-04-22] MEDS: INSULIN -REGULAR HUMAN 50 UNIT/0.5 ML ML SQ SCH ×3 (06:00→18:00)
[2018-04-22 06:04] LABS: Absolute Lymphocytes (CBC) 0.8 K/uL (0.7-4.9); Absolute Monocytes 0.4 K/uL (0.1-1.3); Absolute Neutrophil 7.9 K/uL (1.8-8.0); Basophils % 0.1 % (0-1.3); Eosinophils % 0.1 % (0-4.4); Hematocrit 44.6 % (36.0-45.0); Lymphocytes % 8.5 % (15.3-44.8); MCH 28.2 pg (27.0-35.0); MPV 8.8 fL (7.6-11.3); Monocytes % 4.2 % (3.3-12.3); RBC Red Blood Cell Count 5.13 M/uL (3.86-4.86)
[2018-04-22 06:35] LABS: Blood Morphology Comment NOT SEEN (NOT SEEN); Platelet Estimate ADEQ
[2018-04-22] MEDS ORDERED: HYDRALAZINE HCL 20 MG/ML VIAL IV PRN (06:50)
[2018-04-22] MEDS ORDERED: SODIUM CHLORIDE 0.9% 10ML INJ IV PRN (06:50)
--- NOTE | 2018-04-22 07:44 | RAD REPORT ---
EXAM DESCRIPTION: CT - Abdomen Pelvis Wo Contrast - 04/22/2018 2:54 am CLINICAL HISTORY: Abdominal pain, nausea and diarrhea, history of hernia repair and hysterectomy. A preliminary written report was provided at the time of the study, and the report was reviewed prio r to final dictation. COMPARISON: None. TECHNIQUE: Axial [address] imaging of the abdomen and pelvis was performed without IV contrast. No IV contrast was given because of allergy, abnormal renal function, patient refusal or physician re quest. Oral contrast was given. All CT scans are performed using dose optimization technique as appropriate and may include automated exposure control or mA/KV adjustment according to patient size. FINDINGS: No suspicious findings in the lung bases. The liver, spleen and pancreas show no suspicious findings on non-contrast imaging. Gallbladder and b iliary tree are also without suspicious finding. Gallstones can be occult. No hydronephrosis or suspicious renal mass. A 2 centimeter round low-density area medial lower right kidney is believed to be an incidental cyst but is not fully assessed. 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 Punctate nonobstructing calyx calculi on the right. A 14 x 8 mm calcification lower pole left kidney could be a single stone or clustered calculi. No perinephr ic stranding. No significant adrenal finding. Isodense renal masses and pyelonephritis cannot be excl uded in the absence of IV contrast. The urinary bladder is without significant finding. Stomach is distended mostly by air. No gastric wall thickening or mass. There is a small quantity of oral contrast has extended into the proximal small bowel. Colonic diverticulosis is present on the le ft without diverticulitis. Colon is decompressed except for a small amount of stool present in the co surekha. No appendicitis findings. Duodenum is normal in diameter. Proximal jejunum also normal in diameter. There is progressive dilata tion of the distal jejunum into the ileum. Small bowel remains dilated to mid ileum level. There is a n abrupt transition in the posterior lower pelvis mid ileum level. There is fecalized bowel content i n this region. An obstructing mass is not identified. There could be a small occult mass as well as s mall bowel stricture or adhesion. Internal hernia is possible but felt to be lesser in likelihood. Di stal to the transition point the small bowel to the terminal ileum decompressed. No free air or pneumatosis. Trace amount of free fluid is seen. No mass or bulky lymphadenopathy. No abdominal wall hernia except for a small 18 millimeter fat only umbilical hernia. Neck is is 18 mm a s well. Disc and bony degenerative changes are present. Arterial calcifications present. IMPRESSION: Small bowel obstruction pattern with a transition posterior lower pelvis mid ileum level . This could be from an occult mass, adhesion or internal hernia. No free air, abscess, extravasation of contrast or other surgically emergent finding. No malignant mass, lymphadenopathy or other significant finding. 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 Additional nonemergent findings detailed in the body of the report.
--- NOTE | 2018-04-22 08:07 | P.PN ---
Subjective Date of Service: 04/22/18 Primary Care Provider: Dr. Pitt Chief Complaint: SBO Subjective: Other (Patient feeling better. Pain well controlled. Patient with NG tube. No BM or passage of gas noted.) Physical Examination - Vital Signs Temperature: 98.5 F Blood Pressure: 178/82 Pulse: 87 Respirations: 20 Pulse Ox (%): 100 - Physical Exam General: Alert, In no apparent distress, Oriented x3, Cooperative HEENT: Atraumatic, Other (NG tube in place) Neck: Supple Respiratory: Clear to auscultation bilaterally, Normal air movement Cardiovascular: Normal pulses, Regular rate/rhythm Gastrointestinal: Normal bowel sounds, Soft and benign, No masses, No rebound, No guarding, Distended, Tenderness (Minimal tenderness to the abdomen) Integumentary: No tenderness/swelling, No erythema, No warmth, No cyanosis Neurological: Normal speech, Normal strength at 5/5 x4 extr, Normal tone, Normal affect - Studies Laboratory Data (last 24 hrs) 04/21/18 20:00: Creatinine 0.80 04/21/18 20:00: WBC 11.0 H, Hgb 14.7, Hct 44.3, Plt Count 291 04/21/18 20:00: Sodium 141, Potassium 4.0, BUN 17, Creatinine 0.80, Glucose 162 H, Magnesium 2.3, Total Bilirubin 0.4, AST 17, ALT 19, Alkaline Phosphatase 145 H, Amylase 76, Lipase 140 Medications List Reviewed: Yes Assessment & Plan - Problems (Diagnosis) (1) GERD (gastroesophageal reflux disease) Current Visit: Yes Status: Chronic Plan: It sounds like the patient had previous laparoscopic fundoplication due to severe gastric reflux. This was done in the past. Will start PPI. Qualifiers: Esophagitis presence: esophagitis presence not specified Qualified Code(s) : K21.9 - Gastro-esophageal reflux disease without esophagitis (2) Renal calculi Current Visit: Yes Status: Chronic Plan: Bilateral renal calculi nonobstructing. This can be further managed as an outpatient. Will monitor closely. (3) Renal cyst Current Visit: Yes Status: Acute Plan: CT report structure to the right kidney 2 cm in size likely renal cyst. 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 This can be followed as an outpatient. (5) CAD (coronary artery disease) Current Visit: Yes Status: Chronic Plan: Will monitor closely. Patient stable this time. Will obtain home medication. Qualifiers: Coronary Disease-Associated Artery/Lesion type: [place] artery [place] vs. transplanted heart: [place] heart Associated angina: without angina Qualified Code(s): I25.10 - Atherosclerotic heart disease of [place] coronary artery without angina pectoris (6) Diabetes mellitus Current Visit: Yes Status: Chronic Plan: Will check A1c. Will continue sliding scale. Qualifiers: Diabetes mellitus type: type 2 Diabetes mellitus termite treater insulin use: without care home use Diabetes mellitus complication status: with unspecified complications Qualified Code(s): E11.8 - Type 2 diabetes mellitus with unspecified complications (7) HTN (hypertension) Current Visit: Yes Status: Chronic Plan: Will obtain home medication. Will provide IV medication as needed. Qualifiers: Hypertension type: essential hypertension Qualified Code(s): I10 - Essential (primary) hypertension (8) SBO (small bowel obstruction) Current Visit: Yes Status: Acute Plan: Small-bowel obstruction identified. NG tube in place. Pain better controlled. Still no bowel movement or passage of gas. Surgery has been consulted. Await further recommendation. Will monitor closely. Discharge Plan: Home Plan to discharge in: Greater than 2 days - Code Status/Comfort Care Code Status Assessed: Yes Time Spent Managing Pts Care (In Minutes): 55
[2018-04-22] MEDS: PANTOPRAZOLE 40 MG INJ IVP SCH (08:27)
[2018-04-22 08:41] LABS: Thyroid Stimulating Hormone 0.26 uIU/mL (0.36-3.74)
--- NOTE | 2018-04-22 10:59 | RAD REPORT ---
EXAM DESCRIPTION: RAD - Abdomen Acute Series - 04/22/2018 9:21 am CLINICAL HISTORY: Small bowel obstruction, abdominal pain COMPARISON: CT study April 21, chest exam October 2011 FINDINGS: No failure, infiltrate or mass in the lung parenchyma. Fibrotic changes are present. Heart size and pulmonary vasculature are normal. No pleural effusion, pneumothorax or other acute cardiopu lmonary process seen. NG tube tip is in the proximal stomach. Side port of the tubing is at the GE junction or distal most esophagus. Stomach is decompressed. No free air or pneumatosis have developed. Dilated small bowel pa ttern has not changed. Colon remains decompressed. No suspicious calcifications. IMPRESSION: No improvement in the small bowel dilatation pattern. No free air or pneumatosis. NG tube tip is in the proximal stomach with the stomach decompressed. Fibrotic lung change with no acute cardiopulmonary finding.
[2018-04-22] MEDS: ENALAPRILAT 1.25 MG/ML VIAL IV PRN (12:49)
[2018-04-22] MEDS: ENOXAPARIN 40 MG/0.4 ML SQ SCH (17:05)
--- NOTE | 2018-04-22 17:22 | CON ---
Date of Consultation: 04/22/2018 Diagnosis: Small bowel obstruction. History Of Present Illness: This is a case of an 88-year-old patient, comes to us with about 2 days history of nausea but not vomiting. Abdomen was distended, so she came to the ER diagnose a bowel ob struction. She remembered about 2-3 days ago, she was eating a lot of vegetables, green peppers, and she knows that she have to raul her food a lot and she does that, but still developed this discomfort . She has history of surgical intervention multiple times in the lower abdomen for ventral hernias, but she cannot give any details on it. She denies any dysuria, hematuria, hematochezia, or melena. Denies any recent traveling out of the country. Denies any family member sick at home. She does not remember the last colonoscopy, although she had done. Allergies: SULFA, TETRACYCLINE. SHE LIST CLINDAMYCIN, BUT THEN SHE CLARIFIED THAT IS CLINDAMYCIN GI VE HER SEVERE DIARRHEA BEFORE AND THAT IS WHAT SHE CALLED AN ALLERGY. Past Medical History: Once again, ventral hernia repair in lower abdomen, hysterectomy, coronary art jonnie disease, hypertension, diabetes, on and off AFib in the past. Social History: She does not drink. She does not smoke. Family History: Noncontributory. Review of Systems: [place] otherwise unremarkable. Physical Examination: General: The patient is awake and alert. No distress. HEENT: Pupils are anicteric. Neck: Supple. Respiratory: Bilateral breath sounds. Gastrointestinal: Abdomen is softly distended. No guarding or rebound. Mild generalized tenderness . No peritonitis. Rectal: Deferred. Extremities: Good capillary refill. Diagnostic Data: CAT scan of abdomen and pelvis showing bowel obstruction. Small bowel serious also reviewed today. Laboratory Data: Blood work shows WBC count of 9.1 with hemoglobin of 14.5. Assessment: This is an 88-year-old patient with bowel obstruction. She has multiple surgeries in e past. She was eating a lot of vegetables recently, either no she was trying chew her foot, she not iced this happening. I explained to her the options of laparotomy, possible bowel resection, possibl e ostomy with benefits, alternatives, and risks including, but not limited to infection, bleeding, da mage to adjacent structures, anesthesia complication, recurrence, NE, and even . She also under stands this may not relieve any symptoms. She might need more than one surgical intervention. The p oumou's son is there and they were explained to him until all the question were satisfied. Obviousl y, she is starting to feel little better, so she wants some conservative treatment to be done and so I may wait next 24-48 hours to see how she developed. If we noticed that the patient develops perito nitis or any other clinical findings with worst clinical findings then she might have to consider the surgical intervention. In the meantime, we are going to continue with the NG tube, an ambulation, b owel rest and we are going to get cardiac clearance in case we get to the point that clinically she d oes not improve over the next 24-48 hours and then we might have to go for surgery. CHRISTIANO/FANG Voice ID: [id number] Report ID: [id number]
[2018-04-23] MEDS: INSULIN -REGULAR HUMAN 50 UNIT/0.5 ML ML SQ SCH ×4 (05:56→17:48)
[2018-04-23 06:23] LABS: Absolute Lymphocytes (CBC) 1.5 K/uL (0.7-4.9); Absolute Monocytes 0.6 K/uL (0.1-1.3); Absolute Neutrophil 5.7 K/uL (1.8-8.0); Basophils % 0.6 % (0-1.3); Eosinophils % 3.5 % (0-4.4); Hematocrit 39.5 % (36.0-45.0); MCH 28.7 pg (27.0-35.0); MCV 86.8 fL (80-100); MPV 8.5 fL (7.6-11.3); RBC Red Blood Cell Count 4.55 M/uL (3.86-4.86)
[2018-04-23 06:30] LABS: BUN Blood Urea Nitrogen 7 mg/dL (7-18); Bicarbonate 30 mmol/L (21-32); Glucose Level 105 mg/dL (74-106); Potassium 3.5 mmol/L (3.5-5.1); Sodium Level 141 mmol/L (136-145)
[2018-04-23] MEDS ORDERED: D50W 25 GM/50 ML SYRINGE IV PRN (07:12)
[2018-04-23] MEDS ORDERED: GLUCAGON 1 MG/VIAL IM PRN (07:12)
[2018-04-23] MEDS ORDERED: KCL 20 MEQ/100 mL IVPB 20 MEQ/100 ML BAG IV SCH (09:00)
--- NOTE | 2018-04-23 09:45 | P.PN ---
Subjective Date of Service: 04/23/18 Primary Care Provider: Dr. Pitt Chief Complaint: SBO Subjective: Doing well (Patient feels better. Less pain noted. Patient is noting some passage of gas but no bowel movement.) Physical Examination - Vital Signs Temperature: 97.8 F Blood Pressure: 194/88 Pulse: 79 Respirations: 12 Pulse Ox (%): 96 - Physical Exam General: Alert, In no apparent distress, Oriented x3, Cooperative HEENT: Atraumatic Neck: Supple Respiratory: Clear to auscultation bilaterally, Normal air movement Cardiovascular: Normal pulses, Regular rate/rhythm Gastrointestinal: Normal bowel sounds, Soft and benign, No tenderness, No masses , No rebound, No guarding, Distended (Less distention noted.) Musculoskeletal: No erythema, No tenderness, No warmth Integumentary: No erythema, No warmth, No cyanosis Neurological: Normal speech, Normal strength at 5/5 x4 extr, Normal tone, Normal affect - Studies Medications List Reviewed: Yes Assessment & Plan - Problems (Diagnosis) (1) GERD (gastroesophageal reflux disease) Current Visit: Yes Status: Chronic Plan: Patient with history of previous laparoscopic fundoplication due to severe gastric reflux in the distant past. Will continue with PPI. Patient with small -bowel obstruction. Slightly improved. Less distention noted. Passage of gas is noted. No BM yet. Cardiology consulted by surgery for cardiac clearance in the event the patient requires surgery. Encourage ambulation. Will provide incentive spirometer. Patient with NG tube in place. I will turn the service over to Dr. Gallo tomorrow. I will go over the plan of care with her. Qualifiers: Esophagitis presence: esophagitis presence not specified Qualified Code(s) : K21.9 - Gastro-esophageal reflux disease without esophagitis (2) Renal calculi Current Visit: Yes Status: Chronic Plan: Bilateral renal calculi nonobstructing. This can be further managed as an outpatient. Will monitor closely. (3) Renal cyst Current Visit: Yes Status: Acute Plan: CT report structure to the right kidney 2 cm in size likely renal cyst. This can be followed as an outpatient. 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 This can be followed as an outpatient. (5) CAD (coronary artery disease) Current Visit: Yes Status: Chronic Plan: Will monitor closely. Patient stable this time. Qualifiers: Coronary Disease-Associated Artery/Lesion type: [place] artery [place] vs. transplanted heart: [place] heart Associated angina: without angina Qualified Code(s): I25.10 - Atherosclerotic heart disease of [place] coronary artery without angina pectoris (6) Diabetes mellitus Current Visit: Yes Status: Chronic Plan: A1c 6.0. Will continue sliding scale. Qualifiers: Diabetes mellitus type: type 2 Diabetes mellitus intermodal dispatcher insulin use: without halfway use Diabetes mellitus complication status: with unspecified complications Qualified Code(s): E11.8 - Type 2 diabetes mellitus with unspecified complications (7) HTN (hypertension) Current Visit: Yes Status: Chronic Plan: Will continue with home medication. Will provide IV medication as required Qualifiers: Hypertension type: essential hypertension Qualified Code(s): I10 - Essential (primary) hypertension (8) SBO (small bowel obstruction) Current Visit: Yes Status: Acute Plan: Small-bowel obstruction identified. NG tube in place. Patient overall improved. Pain better. Less distention noted. Passage of gas is noted. No bowel movement yet. Surgery requested cardiology evaluation for cardiac clearance in the event that she require surgery. Encourage ambulation. I will turn the service over to Dr. Gallo tomorrow. I will go over the plan of care with her. Discharge Plan: Home Plan to discharge in: Greater than 2 days - Code Status/Comfort Care Code Status Assessed: Yes (Patient is Full code) Time Spent Managing Pts Care (In Minutes): 55
[2018-04-23] MEDS: ENALAPRILAT 1.25 MG/ML VIAL IV PRN (10:01)
[2018-04-23] MEDS: PANTOPRAZOLE 40 MG INJ IVP SCH (10:01)
[2018-04-23] MEDS: NA CHLORIDE 0.9% 1,000 ML IV SCH ×3 (10:22→22:52)
[2018-04-23] MEDS: MONTELUKAST 10 MG TAB PO SCH (11:00)
--- NOTE | 2018-04-23 12:08 | RAD REPORT ---
EXAM DESCRIPTION: RAD - Abdomen 1 View (KUB) - 04/23/2018 6:36 am CLINICAL HISTORY: Follow up small-bowel obstruction Pain COMPARISON: Abdomen Pelvis Wo Contrast dated 04/21/2018 FINDINGS: The previously noted small bowel obstruction pattern shows moderate improvement. No pneuma tosis is seen. No suspicious calcifications. No fracture present. IMPRESSION: Moderate improvement in SBO pattern since 04/21/2018.
[2018-04-23] MEDS: ESCITALOPRAM 20 MG TAB PO SCH (12:32)
[2018-04-23] MEDS: ASPIRIN EC 81 MG TAB PO SCH (12:32)
[2018-04-23] MEDS: VALSARTAN 160 MG TAB PO SCH (12:32)
[2018-04-23] MEDS: ALLOPURINOL 100 MG TAB PO SCH (12:32)
--- NOTE | 2018-04-23 14:41 | CON ---
CARDIOLOGY CONSULT History Of Present Illness: Mrs. Partida is 88. She is in the hospital with small bowel obstruction, abdominal pain. Reason for Cardiology consult is preoperative assessment before she goes through gen eral anesthesia, abdominal surgery, not sure if the surgery is scheduled or just considered likely. Mrs. Partida has had atrial fibrillation before and hypertension. No other heart or vascular disease. She has dementia and she had atrial fib in 2011. It was associated with C difficile colitis and pro found dehydration. Since then, she has not been on anticoagulant or antiarrhythmic drugs, and has no t had any recurrence of the AFib. Medications: She takes valsartan, Lexapro, allopurinol, Singulair, Zantac, and aspirin. Allergies: SHE REPORTS NUMEROUS ALLERGIES INCLUDING TO CLINDAMYCIN, SULFA ANTIBIOTICS, X-RAY CONTRAS T MATERIAL. Review of Systems: The patient denies having chest pain, palpitations, shortness of breath. Her only complaint is abdom inal pain. She has been on nasogastric suction, IV fluids, and antibiotics for the past 24 hours and she states she feels better. Physical Examination: General: She is 5 feet 5 inches, 130 pounds, body mass index 21. HEENT: Normal. No carotid bruit. Lungs: Clear. Heart: Regular rate and rhythm. There is a systolic murmur that is probably mild aortic sclerosis. I do not suspect anything worse than that. Abdomen: Soft to palpation. No rebound. Extremities: No cyanosis, clubbing, or edema. Distal pulses are palpable, mildly diminished. Laboratory Data: She has a white blood cell count of 8000, hemoglobin 13, platelet count 243,000. H er creatinine is 0.6. TSH is 0.26. Calcium level is 10.1. An electrocardiogram reveals no infarcti on, injury, or ischemia. Looks similar to old EKGs. On her heart monitor, she has had nothing but s inus rhythm. Impression: I consider the patient acceptable low risk for going through general anesthesia, laparot arlyn, or laparoscopy if needed, and I will be on hand to help if she goes back into atrial fibrillatio n. JAVAD/MODL Voice ID: [id number] Report ID: [id number]
[2018-04-23] MEDS: ENOXAPARIN 40 MG/0.4 ML SQ SCH (17:50)
--- NOTE | 2018-04-23 21:49 | PN ---
Date of Progress Note: 04/23/2018 Diagnosis: Small-bowel obstruction. Subjective: The patient feels better. She thinks she is passing some gas. No nausea. No vomiting. Objective: Chest: Clear. Abdomen: Soft. No abdominal pain at this moment. Soft and depressible. No guarding or rebound. Extremities: Good capillary refill. Laboratory Data: Blood work shows WBC count of 8.1. Chloride is 108. X-ray this morning shows mode rate improvement of the small-bowel obstruction. Assessment: This is an 88-year-old patient with multiple surgical history with small-bowel obstructi on. Obviously, trying not to have any surgery to solve this issue. She understands clinically all l imitations, but she is improving, so we are going to help her to see if she can do that without surgi horacio intervention. She is moving. She has been compliant with treatment. She has an NG tube on her. Tomorrow, we are trying to do a small-bowel series. Hopefully, shows that the obstruction has reso lved, and then we will proceed accordingly. Right now, there is no peritonitis. CHRISTIANO/FANG Voice ID: [id number] Report ID: [id number]
[2018-04-24 04:59] VITALS: BMI 26.6
[2018-04-24 05:21] LABS: Absolute Lymphocytes (CBC) 1.6 K/uL (0.7-4.9); Absolute Monocytes 0.6 K/uL (0.1-1.3); Absolute Neutrophil 6.8 K/uL (1.8-8.0); Basophils % 0.4 % (0-1.3); Eosinophils % 4.1 % (0-4.4); Hematocrit 38.1 % (36.0-45.0); Lymphocytes % 16.6 % (15.3-44.8); MCH 29.2 pg (27.0-35.0); MCV 86.1 fL (80-100); MPV 8.3 fL (7.6-11.3); Monocytes % 6.7 % (3.3-12.3); RBC Red Blood Cell Count 4.43 M/uL (3.86-4.86)
[2018-04-24 05:37] LABS: BUN Blood Urea Nitrogen 8 mg/dL (7-18); Bicarbonate 24 mmol/L (21-32); Glucose Level 82 mg/dL (74-106); Magnesium 1.8 mg/dL (1.8-2.4); Potassium 3.2 mmol/L (3.5-5.1); Sodium Level 139 mmol/L (136-145)
[2018-04-24] MEDS: INSULIN -REGULAR HUMAN 50 UNIT/0.5 ML ML SQ SCH ×4 (06:00→18:00)
[2018-04-24] MEDS: KCL 20 MEQ/100 mL IVPB 20 MEQ/100 ML BAG IV SCH ×2 (06:52→08:37)
[2018-04-24] MEDS: PANTOPRAZOLE 40 MG INJ IVP SCH (08:33)
[2018-04-24] MEDS: ENALAPRILAT 1.25 MG/ML VIAL IV PRN (08:33)
[2018-04-24] MEDS: ESCITALOPRAM 20 MG TAB PO SCH ×2 (08:38→16:53)
[2018-04-24] MEDS: VALSARTAN 160 MG TAB PO SCH ×2 (08:38→16:53)
[2018-04-24] MEDS: ASPIRIN EC 81 MG TAB PO SCH (08:38)
[2018-04-24] MEDS: ALLOPURINOL 100 MG TAB PO SCH (08:39)
[2018-04-24] MEDS: MONTELUKAST 10 MG TAB PO SCH (08:39)
[2018-04-24] MEDS: NA CHLORIDE 0.9% 1,000 ML IV SCH ×2 (08:56→14:45)
[2018-04-24] MEDS ORDERED: MAGNESIUM SULFATE 1 gm IVPB 1 GM/100 ML BAG IV ONE (09:00)
[2018-04-24] MEDS ORDERED: VALSARTAN 320 MG PO SCH (09:00)
--- NOTE | 2018-04-24 14:19 | P.PN ---
Subjective Date of Service: 04/24/18 Primary Care Provider: Dr. Pitt Chief Complaint: SBO Pt seen and examined at bedside. Chart Reviewed. Case DW with Shara. Pt has no complains to offer. Small Bowel Series pending at this time. NG tube with ~ 150ml outpt last night. +flatulence no BM yet. Review of Systems General: As per HPI Physical Examination - Vital Signs Temperature: 98.1 F Blood Pressure: 182/77 Pulse: 82 Respirations: 18 Pulse Ox (%): 96 - Physical Exam General: Alert, In no apparent distress, Other (NG tube in place ) HEENT: Atraumatic Neck: Supple, JVD not distended Respiratory: Clear to auscultation bilaterally, Normal air movement Cardiovascular: Regular rate/rhythm, Normal S1 S2 Gastrointestinal: Normal bowel sounds, Soft and benign, Non-distended, No tenderness Musculoskeletal: No tenderness Integumentary: No rashes Neurological: Normal speech, Normal tone, Normal affect Lymphatics: No axilla or inguinal lymphadenopathy - Studies Medications List Reviewed: Yes Assessment & Plan - Problems (Diagnosis) (1) SBO (small bowel obstruction) Onset Date: 04/24/18 Current Visit: Yes Status: Acute Plan: SBO. Improving. Most likely 2.2 to adhesion -NPO, IV fluids and NG tube for now -Surgery consulted. Appreciate Reccs -Small Bowel Series pending for now. (2) CAD (coronary artery disease) Onset Date: 04/24/18 Current Visit: Yes Status: Chronic Qualifiers: Coronary Disease-Associated Artery/Lesion type: [place] artery [place] vs. 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 Diabetes mellitus complication status: with unspecified complications Qualified Code(s): E11.8 - Type 2 diabetes mellitus with unspecified complications (4) GERD (gastroesophageal reflux disease) Onset Date: 04/24/18 Current Visit: Yes Status: Chronic Qualifiers: Esophagitis presence: esophagitis presence not specified Qualified Code(s) : K21.9 - Gastro-esophageal reflux disease without esophagitis (5) HTN (hypertension) Onset Date: 04/24/18 Current Visit: Yes Status: Chronic Qualifiers: Hypertension type: essential hypertension Qualified Code(s): I10 - Essential (primary) hypertension Discharge Plan: Home Plan to discharge in: 72 Hours Critical Care: No
--- NOTE | 2018-04-24 15:26 | RAD REPORT ---
EXAM DESCRIPTION: RAD - Small Bowel Series - 04/24/2018 3:12 pm CLINICAL HISTORY: Abdominal pain/ COMPARISON: April 21, 2018 cat scan FINDINGS: A nasogastric tube is present within the stomach. Contrast enters the colon by approximately 2 hours The mucosal folds of the small bowel appear normal. No permanent filling defects, obstructing or constricting lesions are seen. The small bowel caliber is normal. IMPRESSION: The small bowel obstruction has resolved
[2018-04-24] MEDS: ENOXAPARIN 40 MG/0.4 ML SQ SCH (16:54)
[2018-04-24 20:24] VITALS: O2SAT 96
[2018-04-25] MEDS: ENALAPRILAT 1.25 MG/ML VIAL IV PRN (00:05)
[2018-04-25] MEDS: NA CHLORIDE 0.9% 1,000 ML IV SCH ×3 (00:06→10:38)
[2018-04-25 05:05] LABS: Absolute Lymphocytes (CBC) 1.1 K/uL (0.7-4.9); Absolute Monocytes 0.8 K/uL (0.1-1.3); Absolute Neutrophil 6.5 K/uL (1.8-8.0); Basophils % 0.5 % (0-1.3); Eosinophils % 4.4 % (0-4.4); Hematocrit 36.7 % (36.0-45.0); MCH 29.3 pg (27.0-35.0); MCV 84.9 fL (80-100); Monocytes % 9.2 % (3.3-12.3); RBC Red Blood Cell Count 4.32 M/uL (3.86-4.86)
[2018-04-25] MEDS: INSULIN -REGULAR HUMAN 50 UNIT/0.5 ML ML SQ SCH ×5 (06:00→16:30)
[2018-04-25] MEDS: ASPIRIN EC 81 MG TAB PO SCH (09:25)
[2018-04-25] MEDS: ESCITALOPRAM 20 MG TAB PO SCH (09:25)
[2018-04-25] MEDS: PANTOPRAZOLE 40 MG INJ IVP SCH (09:25)
[2018-04-25] MEDS: VALSARTAN 160 MG TAB PO SCH (09:25)
[2018-04-25] MEDS: MONTELUKAST 10 MG TAB PO SCH (09:26)
[2018-04-25] MEDS: ALLOPURINOL 100 MG TAB PO SCH (09:26)
--- NOTE | 2018-04-25 12:38 | P.PN ---
Subjective Date of Service: 04/24/18 Primary Care Provider: Dr. Pitt Chief Complaint: SBO Subjective: Improving Review of Systems General: Fever (no), Chills (no), Sweats (o) Respiratory: Unremarkable Cardiovascular: Unremarkable Gastrointestinal: Nausea (noo), Vomiting (no), Abdominal Pain (o), Distention, Hematochezia (no), As per HPI Genitourinary: Unremarkable Physical Examination - Vital Signs Temperature: 98.5 F Blood Pressure: 161/70 Pulse: 63 Respirations: 18 Pulse Ox (%): 94 - Physical Exam General: Alert, Oriented x3, Cooperative HEENT: PERRLA, EOMI Neck: Supple Cardiovascular: No edema Gastrointestinal: Soft and benign, No rebound, No guarding Integumentary: No erythema, No warmth, No cyanosis - Studies Medications List Reviewed: Yes Assessment And Plan - Plan smallbowel series ambulation diet if SBS ok
--- NOTE | 2018-04-25 14:39 | P.DS ---
Admission Date: 04/22/18 Discharge Date: 04/25/18 Primary Care Provider: Dr. Pitt Disposition: ROUTINE DISCHARGE Discharge Condition: GOOD Reason for Admission: SBO Consultations: Surgery Procedures: None - Problems (1) SBO (small bowel obstruction) Onset Date: 04/24/18 Current Visit: Yes Status: Resolved (2) CAD (coronary artery disease) Onset Date: 04/24/18 Current Visit: Yes Status: Chronic Qualifiers: Coronary Disease-Associated Artery/Lesion type: [place] artery [place] vs. transplanted heart: [place] heart Associated angina: without angina Qualified Code(s): I25.10 - Atherosclerotic heart disease of [place] coronary artery without angina pectoris (3) Diabetes mellitus Onset Date: 04/24/18 Current Visit: Yes Status: Chronic Qualifiers: Diabetes mellitus type: type 2 Diabetes mellitus superintendent marine oil terminal insulin use: without snf use Diabetes mellitus complication status: with unspecified complications Qualified Code(s): E11.8 - Type 2 diabetes mellitus with unspecified complications (4) GERD (gastroesophageal reflux disease) Onset Date: 04/24/18 Current Visit: Yes Status: Chronic Qualifiers: Esophagitis presence: esophagitis presence not specified Qualified Code(s) : K21.9 - Gastro-esophageal reflux disease without esophagitis (5) HTN (hypertension) Onset Date: 04/24/18 Current Visit: Yes Status: Chronic Qualifiers: Hypertension type: essential hypertension Qualified Code(s): I10 - Essential (primary) hypertension Brief History of Present Illness: See HPI Hospital Course: Overall during the hospital stay patient remained stable Overall during the hospital stay patient remained stable patient was initially admitted to the hospital for small bowel obstruction most likely secondary to adhesions from her abdominal surgery. Patient had an NG tube placed kept NPO and IV fluids. General surgery was consulted who agreed with the plan and recommended KUB x-ray. KUB x-ray on day 2 was consistent with marked improvement in the small bowel obstruction. Patient had passed gas at that time. Patient had a gastric bowel series done here in the hospital. Which was consistent with complete resolution of the small bowel obstruction. At that time NG tube was clamped patient did not have any other nausea or vomiting. NG tube was removed at that time. Patient had a bowel movement where mostly barium came out. Patient had resolution of her small bowel obstruction. Was advanced diet to clear liquid and then pureed. Patient tolerated diet well and thus was discharged home under stable condition. Vital Signs/Physical Exam: Temp Pulse Resp BP Pulse Ox 98.5 F 63 18 161/70 H 94 04/25/18 12:38 04/25/18 12:38 04/25/18 12:38 04/25/18 12:38 04/25/18 12:38 General: Alert, In no apparent distress HEENT: Atraumatic, PERRLA, EOMI Neck: Supple, JVD not distended Respiratory: Clear to auscultation bilaterally, Normal air movement Cardiovascular: Regular rate/rhythm, Normal S1 S2 Gastrointestinal: Normal bowel sounds, No tenderness Musculoskeletal: No tenderness Integumentary: No rashes Neurological: Normal speech, Normal tone, Normal affect Lymphatics: No axilla or inguinal lymphadenopathy Laboratory Data at Discharge: WBC 8.9 K/uL (4.3-10.9) 04/25/18 04:49 Hgb 12.7 g/dL (12.0-15.0) 04/25/18 04:49 Hct 36.7 % (36.0-45.0) 04/25/18 04:49 Plt Count 206 K/uL (152-406) 04/25/18 04:49 Sodium 139 mmol/L (136-145) 04/24/18 04:48 Potassium 4.3 mmol/L (3.5-5.1) 04/24/18 21:06 BUN 8 mg/dL (7-18) 04/24/18 04:48 Creatinine 0.50 mg/dL (0.55-1.3) L 04/24/18 04:48 Glucose 82 mg/dL (74-106) 04/24/18 04:48 Magnesium 1.9 mg/dL (1.8-2.4) 04/25/18 04:49 Total Bilirubin 0.4 mg/dL (0.2-1.0) 04/21/18 20:00 AST 17 U/L (15-37) 04/21/18 20:00 ALT 19 U/L (12-78) 04/21/18 20:00 Alkaline Phosphatase 145 U/L (45-117) H 04/21/18 20:00 Amylase 76 U/L (25-115) 04/21/18 20:00 Lipase 140 U/L (73-393) 04/21/18 20:00 Home Medications: Allopurinol [Zyloprim*] 100 mg PO DAILY 04/22/18 Aspirin [Aspir-Low] 81 mg PO DAILY 04/22/18 Escitalopram [Lexapro*] 10 mg PO DAILY 04/22/18 Montelukast [Singulair*] 10 mg PO DAILY 04/22/18 Ranitidine HCl [Zantac 75] 75 mg PO DAILY 04/22/18 Valsartan [Diovan] 320 mg PO DAILY 04/22/18 Patient Discharge Instructions: Please f.u with PCP in 1 week post discharge. Please f.u with Dr Pena in 4 week post discharge. NO new medication Diet: Purred Activity: Ad shanique Followup: Kem Pena MD [ACTIVE - CAN ADMIT] - If your Condition Changes
--- NOTE | 2018-04-25 16:01 | PN ---
Date of Progress Note: 04/25/2018 Diagnosis: Small bowel obstruction. Patient feeling better, having bowel movement, passing flatus. Physical Examination: Chest: Clear. Abdomen: Soft and depressible. No guarding or rebound. Small bowel series was explained to her already from yesterday, shows resolution of small bowel obstr uction. Plan: We are going to advance diet to a pureed diet, then she will be discharged home by the primary doctor once she can tolerate the diet. From the surgical standpoint, she was fully explained the im portance of diet and chewing her food. She also understands she should follow up with her gastroente rologist and her previous surgeons. CHRISTIANO/FANG Voice ID: [id number] Report ID: [id number]
[2018-04-25] MEDS: ENOXAPARIN 40 MG/0.4 ML SQ SCH (17:00)
[2018-04-25 18:44] VITALS: BP 160/76; TEMP 98.3
== END 2018-04-25 18:25 | disposition home or self-care (01) | DRG 390 ==
LOC: ER 19:23 → ERHOLD 04-22 00:40 → 2ND 04-22 01:50
PROVIDERS: ADMIT Internal Medicine; ATTEND Family Medicine
DX: K56.50 Intestinal adhesions [bands], unspecified as to partial versus complete obstruction (principal); I25.10 Atherosclerotic heart disease of native coronary artery without angina pectoris; E11.9 Type 2 diabetes mellitus without complications; K21.9 Gastro-esophageal reflux disease without esophagitis; I10 Essential (primary) hypertension; Z79.82 Long term (current) use of aspirin; Z88.2 Allergy status to sulfonamides; Z88.1 Allergy status to other antibiotic agents; Z91.041 Radiographic dye allergy status; N20.0 Calculus of kidney; N28.1 Cyst of kidney, acquired; I72.2 Aneurysm of renal artery
CPT/HCPCS: 36415; 74018; 74022; 74176; 74250; 80048; 80076; 82150; 82962; 83036; 83690; 83735; 84132; 84439; 84443; 85025; 94760; 96374; 96375; 97163; 99285; C9113; J1170; J1650; J2405; J3010; J3475; J7030

== ENCOUNTER 2018-11-10 15:17 | Emergency (ER) | payer OTHER ==
--- NOTE | 2018-11-10 17:18 | RAD REPORT ---
EXAM DESCRIPTION: RAD - Hand Right 3 View - 11/10/2018 4:53 pm CLINICAL HISTORY: Trip and fall, hand pain COMPARISON: Right hand March 2015 FINDINGS: Distal radius and ulna are intact. Radiocarpal joint space degenerative changes are presen t. Degenerative changes involve the trapezium and trapezoid bones along with the trapezial articulati on with the first metacarpal and the scaphoid bone. Bony remodeling changes are present due to the de generative process. No carpal bone fracture seen. No metacarpal or phalanges fracture identified. Patient has severe degenerative change throughout all IP joints of the hand. Degenerative changes much less prominent at the MCP joints. There is no dislo cation or periosteal reaction noted. No foreign body or other soft tissue abnormality. IMPRESSION: Advanced right hand degenerative change with no fracture or acute finding identifiable.
--- NOTE | 2018-11-10 17:18 | RAD REPORT ---
EXAM DESCRIPTION: RAD - Chest Single View - 11/10/2018 4:52 pm CLINICAL HISTORY: Trip and fall, chest pain COMPARISON: March 2018 TECHNIQUE: AP portable chest image was obtained 1647 hours . FINDINGS: Lungs are fibrotic without pulmonary contusion, pneumothorax or acute lung parenchymal pro cess. No failure or volume overload. Heart and vasculature are normal. No measurable pleural effusion and no pneumothorax. Bones are osteopenic. No acute bone findings seen. No acute aortic findings david pected. IMPRESSION: Fibrotic lung change with no acute chest finding. No worrisome change from March 2018.
--- NOTE | 2018-11-10 17:22 | RAD REPORT ---
EXAM DESCRIPTION: RAD - Thoracic Spine Ap/Lat - 11/10/2018 4:57 pm CLINICAL HISTORY: Trip and fall, back pain COMPARISON: None. FINDINGS: AP & lateral views of the thoracic spine were obtained. Thoracic bodies are normal in heig ht and alignment. There are no acute or destructive bony processes seen. No paraspinal masses are rodrigo ntified. Osteopenic changes are present. Endplate degenerative spurring seen throughout most of the m id and upper thoracic spine. No disc space narrowing. IMPRESSION: Osteopenic and degenerative thoracic spine changes without fracture or acute finding.
--- NOTE | 2018-11-10 17:30 | ER ---
Nurse's Notes [facility] Name: Hailey Partida Age: 88 yrs Sex: Female : 1930 Arrival Date: 11/10/2018 Time: 15:20 Bed 11 Private MD: NOEMI ROJO Diagnosis: Fall (on) (from) unspecified stairs and steps;Nondisplaced fracture of distal phalanx of right ring finger;Contusion of right back wall of thorax Presentation: 11/10 15:23 Presenting complaint: Patient states: tripped over a step at her house and fell back sv against a brick wall on the right back area. Care prior to arrival: None. 15:23 Acuity: RUPA 4 sv 15:23 Method Of Arrival: Wheelchair sv 15:23 Transition of care: patient was not received from another setting of care. Onset of sv symptoms was November 09, 2018. 15:40 Risk Assessment: Do you want to hurt yourself or someone else? Patient reports no iw desire to harm self or others. Initial Sepsis Screen: Does the patient meet any 2 criteria? No. Patient's initial sepsis screen is negative. Does the patient have a suspected source of infection? No. Patient's initial sepsis screen is negative. Triage Assessment: 17:50 General: Appears in no apparent distress. Behavior is calm. iw Trauma Activation: Not Applicable Physician: ED Physician; Name: ; Notified At: ; Arrived At: Physician: General Surgeon; Name: ; Notified At: ; Arrived At: Physician: Radiology; Name: ; Notified At: ; Arrived At: Physician: Respiratory; Name: ; Notified At: ; Arrived At: Physician: Lab; Name: ; Notified At: ; Arrived At: Historical: - Allergies: 15:24 Clindamycin; sv 15:24 DynaCirc; sv 15:24 mycin drugs; sv 15:24 whitehead alpha-combinations; sv 15:24 SHELLFISH; sv 15:24 sulfamet/trimet; sv 15:24 TETRACYCLINES; sv 15:24 Ziac; sv - PMHx: 15:24 Arthritis; CAD; Diabetes - NIDDM; Glaucoma; Hypertension; macular degenerations; sv Thyroid problem; - PSHx: 15:24 Hernia repair; Hysterectomy; sv - Immunization history:: Flu vaccine is not up to date. - Social history:: Smoking status: Patient/guardian denies using tobacco. - Ebola Screening: : No symptoms or risks identified at this time. Screenin:34 Abuse screen: Denies threats or abuse. Denies injuries from another. Nutritional iw screening: No deficits noted. Tuberculosis screening: No symptoms or risk factors identified. Fall Risk Fall in past 12 months (25 points). Assessment: 17:50 General: Appears in no apparent distress. Behavior is calm, cooperative. Pain: iw Complains of pain in right lateral posterior chest and dorsal aspect of distal phalanx of right ring finger. Neuro: Level of Consciousness is awake, alert, obeys commands, Oriented to person, place, time, situation, Moves all extremities. Cardiovascular: Patient's skin is warm and dry. Respiratory: Respiratory effort is even, unlabored, Respiratory pattern is regular. Derm: Skin is fragile, is thin. Musculoskeletal: Reports pain in right hand. Vital Signs: 15:25 BP 152 / 71; Pulse 80; Resp 16; Temp 98.7; Pulse Ox 100% ; Weight 56.7 kg; Height 5 ft. sv 5 in. (165.10 cm); Pain 5/10; 15:25 Body Mass Index 20.80 (56.70 kg, 165.10 cm) sv ED Course: 15:20 Patient arrived in ED. mr 15:21 NOEMI ROJO is Private Physician. mr 15:23 Triage completed. sv 15:25 Arm band placed on. sv 15:28 Stephanie Cabrera FNP-C [facility]. snw 15:28 Reid Guadalupe MD is Attending Physician. snw 15:29 Shazia Alcantara, RN is Primary Nurse. iw 16:45 Patient moved to radiology via wheelchair. ag1 16:49 X-ray completed. Patient tolerated procedure well. ag1 16:50 Hand Right 3 View XRAY In Process Unspecified. EDMS 16:50 Chest Single View XRAY In Process Unspecified. EDMS 16:50 XRAY Thoracic Spine (Ap/lat) In Process Unspecified. EDMS 17:00 Patient has correct armband on for positive identification. iw 17:26 NOEMI ROJO is Referral Physician. snw 18:34 No provider procedures requiring assistance completed. Patient did not have IV access iw during this emergency room visit. Administered Medications: No medications were administered Outcome: 17:29 Discharge ordered by . snw 18:34 Discharged to home ambulatory. iw 18:34 Condition: good 18:34 Discharge instructions given to patient, family, Instructed on discharge instructions, follow up and referral plans. medication usage, Demonstrated understanding of instructions, follow-up care, medications, Prescriptions given X 1. 18:35 Patient left the ED. iw Signatures: Dispatcher [employer] Sandra Norwood RN RN Stephanie Cabrera, WELFARE INTERVIEWERDesiraeC WELFARE INTERVIEWER-Vida Andrews Irene, RN RN iw Gallaway, Ashley ag1 Corrections: (The following items were deleted from the chart) 15:24 15:23 Onset of symptoms was November 10, 2018 [facility]
--- NOTE | 2018-11-10 17:30 | EDPHYS ---
Physician Documentation [facility] Name: Hailey Partida Age: 88 yrs Sex: Female : 1930 Arrival Date: 11/10/2018 Time: 15:20 Bed 11 Private MD: NOEMI ROJO ED Physician Reid Guadalupe HPI: 11/10 16:36 This 88 yrs old Female presents to ER via Wheelchair with complaints of Fall snw Injury. 16:36 Details of fall: The patient fell from an upright position, while walking. Onset: The snw symptoms/episode began/occurred suddenly, last night. Associated injuries: The patient sustained injury to the chest, specifically the right lateral posterior chest. Severity of symptoms: At their worst the symptoms were mild. The patient has not experienced similar symptoms in the past. sees Dr. Rojo. no LOC. Historical: - Allergies: 15:24 Clindamycin; sv 15:24 DynaCirc; sv 15:24 mycin drugs; sv 15:24 whitehead alpha-combinations; sv 15:24 SHELLFISH; sv 15:24 sulfamet/trimet; sv 15:24 TETRACYCLINES; sv 15:24 Ziac; sv - PMHx: 15:24 Arthritis; CAD; Diabetes - NIDDM; Glaucoma; Hypertension; macular degenerations; sv Thyroid problem; - PSHx: 15:24 Hernia repair; Hysterectomy; sv - Immunization history:: Flu vaccine is not up to date. - Social history:: Smoking status: Patient/guardian denies using tobacco. - Ebola Screening: : No symptoms or risks identified at this time. ROS: 16:33 Constitutional: Negative for fever, chills, and weight loss, Eyes: Negative for injury, snw pain, redness, and discharge, ENT: Negative pain and discharge, postitive for fall last pm Neck: Negative for injury, pain, and swelling, Cardiovascular: Negative for chest pain, palpitations, and edema, Respiratory: Negative for shortness of breath, cough, wheezing, and pleuritic chest pain, Abdomen/GI: Negative for abdominal pain, nausea, vomiting, diarrhea, and constipation, Back: Negative for injury and pain, : Negative for injury, bleeding, discharge, and swelling, MS/Extremity: Negative for deformity, + tenderness, + swelling Skin: Negative for injury, rash, and discoloration, Neuro: Negative for headache, weakness, numbness, tingling, and seizure, Psych: Negative for depression, anxiety, suicide ideation, homicidal ideation, and hallucinations. Exam: 16:32 Constitutional: This is a well developed, well nourished patient who is awake, alert, snw and in no acute distress. Head/Face: Normocephalic, atraumatic. Eyes: Pupils equal round and reactive to light, extra-ocular motions intact. Lids and lashes normal. Conjunctiva and sclera are non-icteric and not injected. Cornea within normal limits. Periorbital areas with no swelling, redness, or edema. ENT: Nares patent. No nasal discharge, no septal abnormalities noted. Tympanic membranes are normal and external auditory canals are clear. Oropharynx with no redness, swelling, or masses, exudates, or evidence of obstruction, uvula midline. Mucous membranes moist. Neck: Trachea midline, no thyromegaly or masses palpated, and no cervical lymphadenopathy. Supple, full range of motion without nuchal rigidity, or vertebral point tenderness. No Meningismus. Cardiovascular: Regular rate and rhythm with a normal S1 and S2. No gallops, murmurs, or rubs. Normal PMI, no JVD. No pulse deficits. Respiratory: Lungs have equal breath sounds bilaterally, clear to auscultation and percussion. No rales, rhonchi or wheezes noted. No increased work of breathing, no retractions or nasal flaring. Abdomen/GI: Soft, non-tender, with normal bowel sounds. No distension or tympany. No guarding or rebound. No evidence of tenderness throughout. Back: No spinal tenderness. No costovertebral tenderness. Full range of motion. Skin: Warm, dry with normal turgor. Normal color with no rashes, no lesions, and no evidence of cellulitis. Neuro: Awake and alert, GCS 15, oriented to person, place, time, and situation. Cranial nerves II-XII grossly intact. Motor strength 5/5 in all extremities. Sensory grossly intact. Cerebellar exam normal. Normal gait. Psych: Awake, alert, with orientation to person, place and time. Behavior, mood, and affect are within normal limits. 16:32 Chest/axilla: Inspection: abrasion, that is moderate, of the right lateral posterior chest Palpation: is normal, Axilla: are normal. 16:32 Musculoskeletal/extremity: Extremities: grossly normal except: noted in the dorsal aspect of distal phalanx of right ring finger: contusion, decreased ROM, swelling, tenderness, ROM: limited active range of motion due to pain, Circulation is intact in all extremities. Sensation intact. Vital Signs: 15:25 BP 152 / 71; Pulse 80; Resp 16; Temp 98.7; Pulse Ox 100% ; Weight 56.7 kg; Height 5 ft. sv 5 in. (165.10 cm); Pain 5/10; 15:25 Body Mass Index 20.80 (56.70 kg, 165.10 cm) sv MDM: 15:28 Patient medically screened. snw 17:31 Data reviewed: vital signs, nurses notes. Data interpreted: Pulse oximetry: on room air snw is 100 %. Interpretation: normal. Counseling: I had a detailed discussion with the patient and/or guardian regarding: the historical points, exam findings, and any diagnostic results supporting the discharge/admit diagnosis, radiology results, the need for outpatient follow up, to return to the emergency department if symptoms worsen or persist or if there are any questions or concerns that arise at home. Special discussion: I have referred the patient to see his PCP for further evaluation of high blood pressure. Based on the history and exam findings, there is no indication for further emergent testing or inpatient evaluation. I discussed with the patient/guardian the need to see the primary care provider for further evaluation of the symptoms. 11/10 16:21 Order name: Hand Right 3 View XRAY; Complete Time: 17:21 snw 11/10 16:21 Order name: Chest Single View XRAY; Complete Time: 17:21 snw 11/10 16:21 Order name: XRAY Thoracic Spine (Ap/lat); Complete Time: 17:25 snw 11/10 17:26 Order name: Finger Splint: right fourth finger; Complete Time: 17:46 snw 11/10 17:31 Order name: INCENTIVE SPIROMETRY snw Administered Medications: No medications were administered Disposition: 19:01 Co-signature as Attending Physician, Reid Guadalupe MD. rn Disposition: 11/10/18 17:29 Discharged to Home. Impression: Fall (on) (from) unspecified stairs and steps, Nondisplaced fracture of distal phalanx of right ring finger, Contusion of right back wall of thorax. - Condition is Stable. - Discharge Instructions: Cast or Splint Care, Adult, Chest Contusion, Adult, Finger Fracture, Fall Prevention in the Home, RICE for Routine Care of Injuries, Finger Sprain, Adult, Incentive Spirometer. - Prescriptions for Tylenol- Codeine #3 300-30 mg Oral Tablet - take 1 tablet by ORAL route every 6 hours As needed; 12 tablet. - Medication Reconciliation Form, Thank You Letter, Antibiotic Education, Prescription Opioid Use form. - Follow up: NOEMI ROJO; When: 2 - 3 days; Reason: Recheck today's complaints, Continuance of care, Re-evaluation by your physician. Follow up: Emergency Department; When: As needed; Reason: Worsening of condition. Signatures: Dispatcher [employer] Sandra Norwood RN RN sv Stephanie Cabrera, PROFESSOR OF BIOSTATISTICS-C PROFESSOR OF BIOSTATISTICS-Csnw Shazia Alcantara RN RN iw Nieto, Roman, MD MD yarn cleaner: (The following items were deleted from the chart) 18:35 17:29 11/10/2018 17:29 Discharged to Home. Impression: Fall (on) (from) unspecified iw stairs and steps; Nondisplaced fracture of distal phalanx of right ring finger; Contusion of right back wall of thorax. Condition is Stable. Forms are Medication Reconciliation Form, Thank You Letter, Antibiotic Education, Prescription Opioid Use. Follow up: NOEMI ROJO; When: 2 - 3 days; Reason: Recheck today's complaints, Continuance of care, Re-evaluation by your physician. Follow up: Emergency Department; When: As needed; Reason: Worsening of condition. snw
[2018-11-10 18:39] VITALS: BP 152/71; TEMP 98.7; O2SAT 100
== END 2018-11-10 18:35 | disposition home or self-care (01) ==
LOC: ER 15:17
DX: S62.664A Nondisplaced fracture of distal phalanx of right ring finger, initial encounter for closed fracture (principal); W10.9XXA Fall (on) (from) unspecified stairs and steps, initial encounter; Y93.01 Activity, walking, marching and hiking; Y92.9 Unspecified place or not applicable; Z88.2 Allergy status to sulfonamides; Z88.8 Allergy status to other drugs, medicaments and biological substances; Z88.3 Allergy status to other anti-infective agents; Z91.013 Allergy to seafood; I10 Essential (primary) hypertension
CPT/HCPCS: 71045; 72070

== ENCOUNTER 2019-05-20 22:18 | Emergency (ER) | payer OTHER ==
--- NOTE | 2019-05-21 00:09 | ER ---
Nurse's Notes [facility] Name: Hailey Partida Age: 89 yrs Sex: Female : 1930 Arrival Date: 05/20/2019 Time: 22:29 Bed 7 Private MD: NOEMI ROJO Diagnosis: Functional dyspepsia Presentation: 05/20 22:44 Presenting complaint: Patient states: she was eating chicken around 2029 and thinks a ak1 piece is stuck in her esophagus. pt has had abd sx and can not vomiting. Transition of care: patient was not received from another setting of care. Onset of symptoms was May 20, 2019. Risk Assessment: Do you want to hurt yourself or someone else? Patient reports no desire to harm self or others. Initial Sepsis Screen: Does the patient meet any 2 criteria? No. Patient's initial sepsis screen is negative. Does the patient have a suspected source of infection? No. Patient's initial sepsis screen is negative. Care prior to arrival: None. 22:44 Method Of Arrival: Wheelchair ak1 22:44 Acuity: RUPA 3 ak1 Triage Assessment: 22:47 General: Appears in no apparent distress. Behavior is calm, cooperative. Pain: Denies ak1 pain. EENT: Reports possible chicken stuck in throat. Neuro: No deficits noted. Cardiovascular: No deficits noted. Respiratory: No deficits noted. GI: No signs and/or symptoms were reported involving the gastrointestinal system. : No signs and/or symptoms were reported regarding the genitourinary system. Derm: No signs and/or symptoms reported regarding the dermatologic system. Musculoskeletal: No signs and/or symptoms reported regarding the musculoskeletal system. Historical: - Allergies: 22:47 Clindamycin; ak1 22:47 mycin drugs; ak1 22:47 DynaCirc; ak1 22:47 whitehead alpha-combinations; ak1 22:47 SHELLFISH; ak1 22:47 TETRACYCLINES; ak1 22:47 sulfamet/trimet; ak1 22:47 Ziac; ak1 - Home Meds: 22:47 alphagan P Opht for Eye Disorder [Active]; aspirin 81 mg Oral chew 1 tab once daily ak1 [Active]; Diovan HCT Oral for Hypertension [Active]; guanfacine 1 mg Oral tab 1 tab once daily for Hypertension [Active]; Vitamin B-12 Oral [Active]; Multiple Vitamins Oral tab [Active]; Metformin Oral for Type 2 Diabetes Mellitus [Active]; Magnesium Oxide Oral for Hypomagnesemia [Active]; - PMHx: 22:47 Arthritis; CAD; Diabetes - NIDDM; Glaucoma; Thyroid problem; Hypertension; macular ak1 degenerations; - PSHx: 22:47 Hernia repair; Hysterectomy; stomach valve replacement.; ak1 - Immunization history:: Adult Immunizations unknown. - Social history:: Smoking status: Patient/guardian denies using tobacco. - Ebola Screening: : No symptoms or risks identified at this time. Screenin:57 Abuse screen: Denies threats or abuse. Denies injuries from another. Nutritional ak1 screening: No deficits noted. Tuberculosis screening: No symptoms or risk factors identified. Fall Risk None identified. Assessment: 22:57 General: Appears in no apparent distress. Behavior is calm, cooperative, appropriate ak1 for age. Pain: Denies pain. Neuro: Level of Consciousness is awake, alert, obeys commands, Oriented to person, place, time, situation, Retail Office Associate are equal bilaterally Moves all extremities. Gait is steady, Speech is normal. Cardiovascular: No deficits noted. Respiratory: Airway is patent Respiratory effort is even, unlabored, Breath sounds are clear bilaterally. GI: No signs and/or symptoms were reported involving the gastrointestinal system. : No signs and/or symptoms were reported regarding the genitourinary system. EENT: Reports piece of chicken "may be stuck" in her esophagus. pt unable to vomit to removed food. no drooling noted, pt able to swallow her own secretions, no resp distress noted. . Derm: No signs and/or symptoms reported regarding the dermatologic system. Musculoskeletal: No signs and/or symptoms reported regarding the musculoskeletal system. 23:04 Reassessment: pt given water for PO challenge per verbal orders from ERP. ak1 23:42 Reassessment: pt tolerated 1 cup of water and requested a second cup. ak1 05/21 00:27 Reassessment: Patient and/or family updated on plan of care and expected duration. Pain ea level reassessed. Patient is alert, oriented x 3, equal unlabored respirations, skin warm/dry/pink. Discharge instruction given to patient and son, both verbalized the understanding of instruction. Pt left ED via wheelchair, assisted by ED staff. Pt assisted to private vehicle, pt tolerated well. Vital Signs: 05/20 22:47 BP 182 / 95; Pulse 84; Resp 16; Temp 98.2(O); Pulse Ox 98% on R/A; Weight 61.23 kg (M); ak1 Height 5 ft. 5 in. (165.10 cm); Pain 0/10; 05/21 00:02 BP 165 / 77; Pulse 75; Resp 16; Pulse Ox 97% on R/A; ak1 05/20 22:47 Body Mass Index 22.46 (61.23 kg, 165.10 cm) ak1 ED Course: 05/20 22:29 Patient arrived in ED. es 22:29 NOEMI ROJO is Private Physician. es 22:35 Lucie Urias, RN is Primary Nurse. ak1 22:45 Triage completed. ak1 22:47 Arm band placed on Patient placed in an exam room, on a stretcher, Patient notified of ak1 wait time. 22:48 Sae Falcon MD is Attending Physician. tw4 22:57 Patient has correct armband on for positive identification. Bed in low position. Call ak1 light in reach. Side rails up X 1. Adult w/ patient. Pulse ox on. NIBP on. 05/21 00:05 X-ray completed. Portable x-ray completed in exam room. Patient tolerated procedure kw well. 00:06 NOEMI ROJO is Referral Physician. tw4 00:27 Chest Single View XRAY In Process Unspecified. EDMS 00:29 No provider procedures requiring assistance completed. Patient did not have IV access ea during this emergency room visit. Administered Medications: No medications were administered Outcome: 00:07 Discharge ordered by . tw4 00:29 Discharged to home via wheelchair, with family. ea 00:29 Condition: improved 00:29 Discharge instructions given to patient, family, Instructed on discharge instructions, follow up and referral plans. Demonstrated understanding of instructions, follow-up care. 00:29 Patient left the ED. ea Signatures: Dispatcher [employer] Clemencia Thomas Kimberlee kw Krenek, Amber, RN RN ak Yoly Ayala RN RN ea Wadley, Terrence, MD MD tw4
[2019-05-21 01:39] VITALS: TEMP 98.2
[2019-05-21 01:40] VITALS: BP 165/77; O2SAT 97
--- NOTE | 2019-05-21 08:36 | RAD REPORT ---
EXAM DESCRIPTION: RAD - Chest Single View - 05/21/2019 12:08 am CLINICAL HISTORY: Possible ingested foreign body, choking sensation, chest pain COMPARISON: October 2018 TECHNIQUE: AP portable chest image was obtained 2337 hour . FINDINGS: Chronic interstitial lung disease is present similar to the prior study. Pattern is accent uated by a slightly more shallow inspiratory effort. No aspiration, edema or acute lung parenchymal p rocess. Trachea is midline. No radiopaque colon or other foreign body along the course of the esophagus or br onchial tree. Heart and vasculature are normal. No measurable pleural effusion and no pneumothorax. N o acute bony abnormality seen. No acute aortic findings suspected. IMPRESSION: No acute cardiopulmonary process. No ingested foreign body identifiable.
--- NOTE | 2019-05-22 03:35 | EDPHYS ---
Physician Documentation [facility] Name: Hailey Partida Age: 89 yrs Sex: Female : 1930 Arrival Date: 05/20/2019 Time: :29 Bed 7 Private MD: NOEMI ROJO ED Physician Sae Falcon HPI: 05/21 05:12 This 89 yrs old Female presents to ER via Wheelchair with complaints of tw4 Something in throat. 05:12 The patient presents with dysphagia, of both solids and liquids. The patient describes tw4 throat pain as dry. Onset: The symptoms/episode began/occurred just prior to arrival. Severity of symptoms: At their worst the symptoms were mild, in the emergency department the symptoms are unchanged. Modifying factors: The symptoms are alleviated by nothing, the symptoms are aggravated by nothing. Associated signs and symptoms: The patient has no apparent associated signs or symptoms. The patient has not experienced similar symptoms in the past. Historical: - Allergies: 05/20 22:47 Clindamycin; ak1 22:47 mycin drugs; ak1 22:47 DynaCirc; ak1 22:47 whitehead alpha-combinations; ak1 22:47 SHELLFISH; ak1 22:47 TETRACYCLINES; ak1 22:47 sulfamet/trimet; ak1 22:47 Ziac; ak1 - Home Meds: 22:47 alphagan P Opht for Eye Disorder [Active]; aspirin 81 mg Oral chew 1 tab once daily ak1 [Active]; Diovan HCT Oral for Hypertension [Active]; guanfacine 1 mg Oral tab 1 tab once daily for Hypertension [Active]; Vitamin B-12 Oral [Active]; Multiple Vitamins Oral tab [Active]; Metformin Oral for Type 2 Diabetes Mellitus [Active]; Magnesium Oxide Oral for Hypomagnesemia [Active]; - PMHx: 22:47 Arthritis; CAD; Diabetes - NIDDM; Glaucoma; Thyroid problem; Hypertension; macular ak1 degenerations; - PSHx: 22:47 Hernia repair; Hysterectomy; stomach valve replacement.; ak1 - Immunization history:: Adult Immunizations unknown. - Social history:: Smoking status: Patient/guardian denies using tobacco. - Ebola Screening: : No symptoms or risks identified at this time. ROS: 05/21 05:12 Constitutional: Negative for fever, chills, and weight loss, Eyes: Negative for injury, tw4 pain, redness, and discharge, Cardiovascular: Negative for chest pain, palpitations, and edema, Respiratory: Negative for shortness of breath, cough, wheezing, and pleuritic chest pain, Abdomen/GI: Negative for abdominal pain, nausea, vomiting, diarrhea, and constipation. ENT: Positive for difficulty swallowing, Negative for nasal discharge, sore throat, dental pain, difficulty handling secretions. Exam: 05:12 Constitutional: This is a well developed, well nourished patient who is awake, alert, tw4 and in no acute distress. Head/Face: Normocephalic, atraumatic. Chest/axilla: Normal chest wall appearance and motion. Nontender with no deformity. No lesions are appreciated. Cardiovascular: Regular rate and rhythm with a normal S1 and S2. No gallops, murmurs, or rubs. Normal PMI, no JVD. No pulse deficits. Respiratory: Lungs have equal breath sounds bilaterally, clear to auscultation and percussion. No rales, rhonchi or wheezes noted. No increased work of breathing, no retractions or nasal flaring. Abdomen/GI: Soft, non-tender, with normal bowel sounds. No distension or tympany. No guarding or rebound. No evidence of tenderness throughout. 05:12 MS/ Extremity: Pulses equal, no cyanosis. Neurovascular intact. Full, normal range of motion. Neuro: Awake and alert, GCS 15, oriented to person, place, time, and situation. Cranial nerves II-XII grossly intact. Motor strength 5/5 in all extremities. Sensory grossly intact. Cerebellar exam normal. Normal gait. Vital Signs: 05/20 22:47 BP 182 / 95; Pulse 84; Resp 16; Temp 98.2(O); Pulse Ox 98% on R/A; Weight 61.23 kg (M); ak1 Height 5 ft. 5 in. (165.10 cm); Pain 0/10; 05/21 00:02 BP 165 / 77; Pulse 75; Resp 16; Pulse Ox 97% on R/A; ak1 05/20 22:47 Body Mass Index 22.46 (61.23 kg, 165.10 cm) ak1 MDM: 05/20 22:48 Patient medically screened. tw4 05/21 05:12 Differential diagnosis: pharyngitis, esophageal food impaction. Data reviewed: EKG. tw4 Data interpreted: Pulse oximetry: Interpretation:. Counseling: I had a detailed discussion with the patient and/or guardian regarding: the historical points, exam findings, and any diagnostic results supporting the discharge/admit diagnosis, radiology results. Special discussion: I discussed with the patient/guardian in detail that at this point there is no indication for admission to the hospital. It is understood, however, that if the symptoms persist or worsen the patient needs to return immediately for re-evaluation. ED course: Pt able to tolerated po fluids, CXR negative makes esophageal impaction less likely. 05/20 23:10 Order name: Chest Single View XRAY la1 Administered Medications: No medications were administered Disposition: 05/21/19 00:07 Discharged to Home. Impression: Functional dyspepsia. - Condition is Stable. - Discharge Instructions: Dysphagia, Indigestion. - Medication Reconciliation Form, Thank You Letter, Antibiotic Education, Prescription Opioid Use form. - Follow up: NOEMI ROJO; When: Upon discharge from the Emergency Department; Reason: If symptoms return, Recheck today's complaints, Continuance of care. - Problem is new. - Symptoms have improved. Signatures: Dispatcher [employer] EDMS Lucie Urias RN RN ak1 Yoly Ayala RN RN Sae Bowles MD MD tw4 Corrections: (The following items were deleted from the chart) 00:29 00:07 05/21/2019 00:07 Discharged to Home. Impression: Functional dyspepsia. Condition ea is Stable. Forms are Medication Reconciliation Form, Thank You Letter, Antibiotic Education, Prescription Opioid Use. Follow up: NOEMI ROJO; When: Upon discharge from the Emergency Department; Reason: If symptoms return, Recheck today's complaints, Continuance of care. Problem is new. Symptoms have improved. tw4
== END 2019-05-21 00:29 | disposition home or self-care (01) ==
LOC: ER 22:18
DX: K30 Functional dyspepsia (principal); I10 Essential (primary) hypertension; E11.9 Type 2 diabetes mellitus without complications; E07.9 Disorder of thyroid, unspecified; I25.10 Atherosclerotic heart disease of native coronary artery without angina pectoris; Z79.82 Long term (current) use of aspirin; Z88.1 Allergy status to other antibiotic agents; Z88.2 Allergy status to sulfonamides; Z88.3 Allergy status to other anti-infective agents; Z88.8 Allergy status to other drugs, medicaments and biological substances; Z91.013 Allergy to seafood
CPT/HCPCS: 71045; 99283